=== PATIENT | female | born 1950 | race Caucasian/White ===

== ENCOUNTER → 2016-12-06 | Outpatient (CLI) | payer MEDICARE ==
--- NOTE | 2016-12-06 10:28 | MM ---
Reason for exam: clinical finding. History: Patient is postmenopausal. Physical Findings: Nurse Summary: 0.5cm nodule in the right breast and a 0.5cm nodule in the left breast (nurse kp). MG 3D Diag Mammo W/Cad SOBIA Bilateral CC and MLO view(s) were taken. No prior studies available for comparison. The breast tissue is heterogeneously dense. This may lower the sensitivity of mammography. No suspicious abnormality. These results were verbally communicated with the patient and result sheet given to the patient on 12/06/16. ASSESSMENT: Incomplete: need additional imaging evaluation, BI-RAD 0 RECOMMENDATION: Ultrasound of both breasts. (palpables posterior to nipple)
--- NOTE | 2016-12-06 10:30 | USB ---
Reason for exam: clinical finding. History: Patient is postmenopausal. US Breast Limited BILAT Left breast ultrasound demonstates a 0.2 x 0.3 x 0.2cm oval lesion too small to characterize at 6 o'clock. Right breast ultrasound demonstrates no cystic or solid lesion seen. These results were verbally communicated with the patient and result sheet given to the patient on 12/06/16. ASSESSMENT: Probably benign, BI-RAD 3 RECOMMENDATION: Ultrasound of the left breast in 6 months. Manage on a clinical basis with regard to inverted nipples.
--- NOTE | 2016-12-06 12:08 | XR ---
EXAMINATION TYPE: XR chest 2V DATE OF EXAM: 12/06/2016 COMPARISON: NONE HISTORY: Tobacco use, weight loss and nicotine dependence TECHNIQUE: Frontal and lateral views of the chest are obtained. FINDINGS: There is no focal air space opacity, pleural effusion, or pneumothorax seen. The cardiac silhouette size is within normal limits. There is some prominence of interstitium. Postop changes ar e noted to the left shoulder. Acromioclavicular joint arthropathy noted in the right shoulder. IMPRESSION: There may be some underlying interstitial lung disease.
== END | disposition home or self-care (01) ==
LOC: RADMAMWWP 08:28
PROVIDERS: ATTEND Family Medicine
DX: R92.8 Other abnormal and inconclusive findings on diagnostic imaging of breast (principal); N64.59 Other signs and symptoms in breast; R59.9 Enlarged lymph nodes, unspecified; R63.4 Abnormal weight loss; F17.200 Nicotine dependence, unspecified, uncomplicated
CPT/HCPCS: 71020; 76642; G0204; G0279

== ENCOUNTER 2017-12-27 00:29 | Emergency (ER) | payer MEDICARE ==
[2017-12-27 00:38] VITALS: RESP 20
[2017-12-27] MEDS ORDERED: HYDROcodone/APAP 5-325MG 1 EACH TAB PO STA (01:07)
--- NOTE | 2017-12-27 01:12 | ED ---
Fall HPI - General Chief Complaint: Fall Stated Complaint: FALL Time Seen by Provider: 12/27/17 00:44 Source: patient Mode of arrival: wheelchair - History of Present Illness Initial Comments: 67-year-old female patient presents to the emergency department today for complaints of left hip and low back pain after expressing a fall. Patient states approximately 2 hours ago she was using the restroom at a bar when she lost her balance fell backwards and struck her left low back on the toilet. Patient states that she was able to ambulate after the incident however was limping. States that she is also having pain to the left lateral hip. States that she does have bruising and swelling to the left low back. She denies any numbness or tingling to her lower extremities. Denies any loss of bowel or bladder control. Denies any saddle anesthesia. Denies taking any pain medication for her symptoms. She denies hitting her head or losing consciousness during the fall. She denies any other injuries. Patient denies any headache, neck pain, chest pain, shortness of breath, dizziness, weakness, abdominal pain, nausea, vomiting, or difficulties with bowel movements or urination. - Related Data Home Medications Medication Instructions Recorded Confirmed No Known Home Medications 12/27/17 12/27/17 Allergies Allergy/AdvReac Type Severity Reaction Status Date / Time No Known Allergies Allergy Verified 12/27/17 00:38 Review of Systems ROS Statement: Those systems with pertinent positive or pertinent negative responses have been documented in the HPI. ROS Other: All systems not noted in ROS Statement are negative. Past Medical History Past Medical History: No Reported History History of Any Multi-Drug Resistant Organisms: None Reported Past Surgical History: Orthopedic Surgery Additional Past Surgical History / Comment(s): shoulder, back sx Past Psychological History: No Psychological Hx Reported Smoking Status: Current every day smoker Past Alcohol Use History: Occasional Past Drug Use History: None Reported General Exam Limitations: no limitations General appearance: alert, in no apparent distress, other (This is a well- developed, well-nourished adult female patient in no acute distress. Vital signs upon presentation shows temperature 98.8F, pulse 87, respirations 20, blood pressure 173/76, pulse ox 96% on room air.) Eye exam: Present: normal appearance, PERRL, EOMI. Absent: scleral icterus, conjunctival injection, periorbital swelling ENT exam: Present: normal exam, normal oropharynx, mucous membranes moist Respiratory exam: Present: wheezes (Mild wheezing upper lobes). Absent: normal lung sounds bilaterally, respiratory distress, rales, rhonchi, stridor Cardiovascular Exam: Present: regular rate, normal rhythm, normal heart sounds. Absent: systolic murmur, diastolic murmur, rubs, gallop, clicks GI/Abdominal exam: Present: soft, normal bowel sounds. Absent: distended, tenderness, guarding, rebound, rigid Back exam: Present: vertebral tenderness (Lower lumbar tenderness. ), other ( Hematoma and ecchymosis to the left lower lateral back. Mild lower lumbar tenderness. ). Absent: normal inspection Neurological exam: Present: alert, oriented X3, CN II-XII intact Psychiatric exam: Present: normal affect, normal mood Skin exam: Present: warm, dry, intact, normal color. Absent: rash Course Vital Signs 12/27/17 00:32 Temperature 98.8 F Pulse Rate 87 Respiratory 20 Rate Blood Pressure 123/76 O2 Sat by Pulse 96 Oximetry Medical Decision Making - Medical Decision Making 67 year-old female patient presented to the emergency department today for evaluation of left hip and low back pain after expressing a fall this evening. Physical examination did reveal evidence of a large hematoma to the left low back with ecchymosis. Patient did have some mild lower lumbar tenderness. X- ray of the lumbosacral spine was obtained and showed no evidence of acute fracture. Left hip and pelvis x-rays were also negative for any acute osseous abnormalities. Did discuss findings and results with the patient. She is instructed to apply ice to the left low back 20 minutes at a time at least 4 times per day. She is instructed take Tylenol Motrin for pain control. She is instructed to follow-up with her primary care physician for recheck in 1-2 days. Return parameters discussed in detail. She verbalizes understanding and agrees with this plan. - Radiology Data Radiology results: report reviewed, image reviewed 5 view x-ray of the lumbosacral spine are obtained. The vertebra have fairly normal alignment. There is slight lumbar dextroscoliosis. Posterior elements are intact. Sacroiliac joints appear intact. There is narrowing of the L5-S1 disc space with vacuum disc. There is no compression fracture. Impression by Dr. Amaya shows mild spondylotic changes. No fracture seen. Single view of the pelvis and 2 views of the left hip are obtained. The pelvic ring is intact. The proximal left femur and hip joint appear intact. There is minor acetabular sprain. Hip joint spaces are fairly normal. Sacroiliac joints appear normal. Impression by Dr. Amaya shows negative pelvis and left hip exam. Disposition Clinical Impression: Traumatic hematoma of lower back, Hip strain Disposition: HOME SELF-CARE Condition: Good Instructions: Hip Pain (ED), Hematoma (ED) Additional Instructions: Apply ice to the low back 20 minutes at a time at least 4 times daily. Take ibuprofen and Tylenol for pain control. Follow-up with your primary care physician for recheck in 1-2 days. Return here immediately for any new, worsening, or concerning symptoms. Is patient prescribed a controlled substance at d/c from ED?: No Referrals: Gabriela Avendano MD [Primary Care Provider] - 1-2 days Time of Disposition: 02:00
--- NOTE | 2017-12-27 01:42 | XR ---
EXAMINATION TYPE: XR Hip LT and AP Pelvis DATE OF EXAM: 12/27/2017 COMPARISON: NONE HISTORY: Left hip pain TECHNIQUE: A single AP view of the pelvis is obtained. Two views of the left hip are obtained. FINDINGS: The pelvic ring is intact. The proximal left femur and hip joint appear intact. There is mi nor acetabular spurring. Hip joint spaces are fairly normal. Sacroiliac joints appear normal. IMPRESSION: Negative pelvis and left hip exam.
--- NOTE | 2017-12-27 01:45 | XR ---
EXAMINATION TYPE: XR lumbosacral spine min 4V DATE OF EXAM: 12/27/2017 COMPARISON: NONE HISTORY: Back pain TECHNIQUE: 5 views FINDINGS: The vertebra have fairly normal alignment. There is slight lumbar dextroscoliosis. Posterio r elements are intact. Sacroiliac joints appear intact. There is narrowing of L5-S1 disc space with v acuum disc. There is no compression fracture. IMPRESSION: Mild spondylotic changes. No fracture seen.
[2017-12-27 03:05] VITALS: BP 125/93; PULSE 100; TEMP 98.7
== END 2017-12-27 02:09 | disposition home or self-care (01) ==
LOC: EC 00:29
DX: S76.012A Strain of muscle, fascia and tendon of left hip, initial encounter (principal); S30.0XXA Contusion of lower back and pelvis, initial encounter; F17.200 Nicotine dependence, unspecified, uncomplicated; W18.09XA Striking against other object with subsequent fall, initial encounter; Y92.89 Other specified places as the place of occurrence of the external cause
CPT/HCPCS: 72110; 73502; 99283

== ENCOUNTER 2018-03-19 17:08 | Observation (INO) | payer MEDICARE ==
--- NOTE | 2018-03-19 19:03 | XR ---
EXAMINATION: XR chest 2V DATE AND TIME: 03/19/2018 6:36 PM CLINICAL INDICATION: PHH; Chest Pain TECHNIQUE: Departmental protocol COMPARISON: 12/06/2016 FINDINGS: The lungs again show a subtle interstitial pattern, suggesting chronic interstitial lung change. The lungs appear similar to the prior study and there is no definite acute radiographic pulmonary process . The pleural spaces are negative. The cardiac silhouette is not enlarged. The remainder of the mediastinal silhouette is unremarkable. The skeletal structures and soft tissues are negative for acute findings. IMPRESSION: NO ACUTE PROCESS.
[2018-03-19 19:14] LABS: Partial Thromboplastin Time 27.3 sec (22.0-30.0); Prothrombin Time 10.4 sec (9.0-12.0)
[2018-03-19 19:15] LABS: Basophils # (A) 0.1 k/uL (0-0.2); Basophils % (A) 1 %; Eosinophils # (A) 0.2 k/uL (0-0.7); Eosinophils % (A) 2 %; HCT 47.6 % (34.0-46.0); HGB 16.2 gm/dL (11.4-16.0); Lymphocytes # (A) 1.9 k/uL (1.0-4.8); Lymphocytes % (A) 24 %; MCH 31.7 pg (25.0-35.0); MCV 93.5 fL (80.0-100.0); Mean Platelet Volume 7.2; Monocytes # (A) 0.3 k/uL (0-1.0); Monocytes % (A) 4 %; Neutrophils # (A) 5.3 k/uL (1.3-7.7); Neutrophils % (A) 67 %; Platelet Count 281 k/uL (150-450); WBC 7.9 k/uL (3.8-10.6)
[2018-03-19 19:22] LABS: ALT 30 U/L (9-52); AST 23 U/L (14-36); Albumin 4.5 g/dL (3.5-5.0); Alkaline Phosphatase 103 U/L (38-126); Anion Gap 12 mmol/L; Blood Urea Nitrogen 12 mg/dL (7-17); Calcium 10.1 mg/dL (8.4-10.2); Carbon Dioxide 21 mmol/L (22-30); Chloride 106 mmol/L (98-107); Glucose 91 mg/dL (74-99); Lipase 1401 U/L (23-300); Magnesium 1.9 mg/dL (1.6-2.3); Potassium 3.8 mmol/L (3.5-5.1); Sodium 139 mmol/L (137-145); Total Bilirubin 0.4 mg/dL (0.2-1.3); Total Protein 7.7 g/dL (6.3-8.2)
[2018-03-19 19:24] LABS: Creatine Kinase 72 U/L (30-135)
[2018-03-19 19:37] LABS: Creatine Kinase MB 0.9 ng/mL (0.0-2.4); Troponin I <0.012 ng/mL (0.000-0.034)
[2018-03-19] MEDS ORDERED: ASPIRIN 325 MG TAB PO STA (21:01)
--- NOTE | 2018-03-19 21:04 | ED ---
General Adult HPI - General Chief complaint: Chest Pain Stated complaint: CHEST PAIN Time Seen by Provider: 03/19/18 17:57 Source: patient, RN notes reviewed, old records reviewed Mode of arrival: ambulatory Limitations: no limitations - History of Present Illness Initial comments: 67-year-old female presenting for evaluation of chest pain. Pain is substernal. Patient's symptoms resolved time my evaluation. She's had intermittent pain over the past several months, most recent episode was yesterday afternoon while the patient was at rest. This was nonradiating substernal chest pain which was dull in nature. No vomiting. No history of hypertension diabetes. Patient is a current smoker. She denies dyspnea. Denies abdominal pain. - Related Data Home Medications Medication Instructions Recorded Confirmed No Known Home Medications 12/27/17 03/19/18 Allergies Allergy/AdvReac Type Severity Reaction Status Date / Time No Known Allergies Allergy Verified 03/19/18 18:19 Review of Systems ROS Statement: Those systems with pertinent positive or pertinent negative responses have been documented in the HPI. ROS Other: All systems not noted in ROS Statement are negative. Past Medical History Past Medical History: No Reported History History of Any Multi-Drug Resistant Organisms: None Reported Past Surgical History: Orthopedic Surgery Additional Past Surgical History / Comment(s): shoulder, back sx Past Psychological History: No Psychological Hx Reported Smoking Status: Current every day smoker Past Alcohol Use History: Occasional Past Drug Use History: None Reported General Exam Limitations: no limitations General appearance: alert, in no apparent distress Head exam: Present: atraumatic Eye exam: Present: normal appearance, PERRL ENT exam: Present: normal exam Neck exam: Present: normal inspection. Absent: tenderness, meningismus Respiratory exam: Present: normal lung sounds bilaterally. Absent: respiratory distress, wheezes Cardiovascular Exam: Present: regular rate, normal rhythm GI/Abdominal exam: Present: soft. Absent: distended, tenderness, guarding, rebound Extremities exam: Present: normal inspection, full ROM, normal capillary refill. Absent: pedal edema Back exam: Present: normal inspection Neurological exam: Present: alert, oriented X3, CN II-XII intact. Absent: motor sensory deficit Psychiatric exam: Present: normal affect, normal mood Skin exam: Present: warm, dry, intact. Absent: cyanosis, diaphoretic Course Vital Signs 03/19/18 03/19/18 03/19/18 17:11 19:30 20:00 Temperature 97.5 F L Pulse Rate 92 68 83 Respiratory 22 18 20 Rate Blood Pressure 127/85 116/80 114/79 O2 Sat by Pulse 96 98 98 Oximetry 03/19/18 20:30 Temperature Pulse Rate 78 Respiratory 20 Rate Blood Pressure 115/100 O2 Sat by Pulse 98 Oximetry - Reevaluation(s) Reevaluation #1: 03/19/18 21:02 EKG: Normal sinus rhythm, artifact in aVL, and aVF, no ST segment elevation, incomplete right bundle branch block, rate of 89, MI interval 182, QRS duration 14, QTC 491 which is prolonged. Medical Decision Making - Medical Decision Making 67-year-old female presenting with intermittent substernal chest pain. Patient does have risk factors for CAD. Laboratory studies reveal normal white blood cell count, hemoglobin 16.2, CMP is normal, lipase elevated at 1400, patient has no abdominal pain, no tenderness. Ultrasound is obtained which is negative for any acute pathology. Initial troponin negative. Chest x-ray negative for acute cardiopulmonary disease. Patient given aspirin emergency prompt. She will be admitted for serial cardiac enzymes, telemetry, and cardiology consultation. Case discussed with the admitting physician will accept. - Lab Data Result diagrams: 03/19/18 18:32 03/19/18 18:32 Lab Results 03/19/18 03/19/18 03/19/18 Range/Units 18:32 18:32 18:32 WBC 7.9 (3.8-10.6) k/uL RBC 5.10 (3.80-5.40) m/uL Hgb 16.2 H (11.4-16.0) gm/dL Hct 47.6 H (34.0-46.0) % MCV 93.5 (80.0-100.0) fL MCH 31.7 (25.0-35.0) pg MCHC 34.0 (31.0-37.0) g/dL RDW 13.0 (11.5-15.5) % Plt Count 281 (150-450) k/uL Neutrophils % 67 % Lymphocytes % 24 % Monocytes % 4 % Eosinophils % 2 % Basophils % 1 % Neutrophils # 5.3 (1.3-7.7) k/uL Lymphocytes # 1.9 (1.0-4.8) k/uL Monocytes # 0.3 (0-1.0) k/uL Eosinophils # 0.2 (0-0.7) k/uL Basophils # 0.1 (0-0.2) k/uL PT (9.0-12.0) sec INR (<1.2) APTT (22.0-30.0) sec Sodium 139 (137-145) mmol/L Potassium 3.8 (3.5-5.1) mmol/L Chloride 106 (98-107) mmol/L Carbon Dioxide 21 L (22-30) mmol/L Anion Gap 12 mmol/L BUN 12 (7-17) mg/dL Creatinine 0.66 (0.52-1.04) mg/dL Est GFR (CKD-EPI)AfAm >90 (>60 ml/min/1.73 sqM) Est GFR (CKD-EPI)NonAf >90 (>60 ml/min/1.73 sqM) Glucose 91 (74-99) mg/dL Calcium 10.1 (8.4-10.2) mg/dL Magnesium 1.9 (1.6-2.3) mg/dL Total Bilirubin 0.4 (0.2-1.3) mg/dL AST 23 (14-36) U/L ALT 30 (9-52) U/L Alkaline Phosphatase 103 (38-126) U/L Total Creatine Kinase 72 (30-135) U/L CK-MB (CK-2) 0.9 (0.0-2.4) ng/mL CK-MB (CK-2) Rel Index 1.3 Troponin I <0.012 (0.000-0.034) ng/mL NT-Pro-B Natriuret Pep pg/mL Total Protein 7.7 (6.3-8.2) g/dL Albumin 4.5 (3.5-5.0) g/dL Lipase 1401 H (23-300) U/L 03/19/18 03/19/18 Range/Units 18:32 18:32 WBC (3.8-10.6) k/uL RBC (3.80-5.40) m/uL Hgb (11.4-16.0) gm/dL Hct (34.0-46.0) % MCV (80.0-100.0) fL MCH (25.0-35.0) pg MCHC (31.0-37.0) g/dL RDW (11.5-15.5) % Plt Count (150-450) k/uL Neutrophils % % Lymphocytes % % Monocytes % % Eosinophils % % Basophils % % Neutrophils # (1.3-7.7) k/uL Lymphocytes # (1.0-4.8) k/uL Monocytes # (0-1.0) k/uL Eosinophils # (0-0.7) k/uL Basophils # (0-0.2) k/uL PT 10.4 (9.0-12.0) sec INR 1.0 (<1.2) APTT 27.3 (22.0-30.0) sec Sodium (137-145) mmol/L Potassium (3.5-5.1) mmol/L Chloride (98-107) mmol/L Carbon Dioxide (22-30) mmol/L Anion Gap mmol/L BUN (7-17) mg/dL Creatinine (0.52-1.04) mg/dL Est GFR (CKD-EPI)AfAm (>60 ml/min/1.73 sqM) Est GFR (CKD-EPI)NonAf (>60 ml/min/1.73 sqM) Glucose (74-99) mg/dL Calcium (8.4-10.2) mg/dL Magnesium (1.6-2.3) mg/dL Total Bilirubin (0.2-1.3) mg/dL AST (14-36) U/L ALT (9-52) U/L Alkaline Phosphatase (38-126) U/L Total Creatine Kinase (30-135) U/L CK-MB (CK-2) (0.0-2.4) ng/mL CK-MB (CK-2) Rel Index Troponin I (0.000-0.034) ng/mL NT-Pro-B Natriuret Pep 31 pg/mL Total Protein (6.3-8.2) g/dL Albumin (3.5-5.0) g/dL Lipase (23-300) U/L Disposition Clinical Impression: Chest pain Disposition: ADMITTED IP TO THIS HOSP Is patient prescribed a controlled substance at d/c from ED?: No Referrals: Gabriela Avendano MD [Primary Care Provider] - 1-2 days Decision to Admit Reason: Admit from EC Decision Date: 03/19/18 Decision Time: 21:17
--- NOTE | 2018-03-19 21:07 | US ---
EXAMINATION TYPE: US gallbladder DATE OF EXAM: 03/19/2018 COMPARISON: NONE CLINICAL HISTORY: Pain. RUQ Pain. Limitations due to rib shadowing. EXAM MEASUREMENTS: Liver Length: 14.7 cm Gallbladder Wall: 0.2 cm CBD: 0.3 cm Right Kidney: 10.6 x 4.3 x 3.4 cm Pancreas: Obscured by bowel gas Liver: wnl Gallbladder: wnl Evidence for sonographic Valentine's sign: No CBD: wnl Right Kidney: wnl IMPRESSION: No acute process.
[2018-03-19] MEDS ORDERED: NALOXONE 0.4 MG/ML 1 ML VIAL IV PRN (21:10)
[2018-03-19] MEDS ORDERED: HYDROmorphone 0.5 MG/0.5 ML SYRINGE IVP PRN (21:10)
[2018-03-19] MEDS ORDERED: ACETAMINOPHEN TAB 325 MG TAB PO PRN (21:10)
[2018-03-19] MEDS ORDERED: ONDANSETRON 4 MG/2 ML VIAL IVP PRN (21:10)
[2018-03-19 22:11] VITALS: BMI 25.6
[2018-03-19] MEDS: SODIUM CHLORIDE 0.9% 1,000 ML IV SCH (22:21)
[2018-03-20 01:12] LABS: Creatine Kinase 59 U/L (30-135)
[2018-03-20 01:25] LABS: Creatine Kinase MB 0.9 ng/mL (0.0-2.4); Troponin I <0.012 ng/mL (0.000-0.034)
[2018-03-20 08:30] LABS: Basophils # (A) 0.1 k/uL (0-0.2); Basophils % (A) 1 %; Eosinophils # (A) 0.2 k/uL (0-0.7); Eosinophils % (A) 4 %; HCT 48.3 % (34.0-46.0); HGB 15.3 gm/dL (11.4-16.0); Lymphocytes # (A) 1.5 k/uL (1.0-4.8); Lymphocytes % (A) 34 %; MCH 30.1 pg (25.0-35.0); MCHC 31.8 g/dL (31.0-37.0); MCV 94.7 fL (80.0-100.0); Mean Platelet Volume 6.5; Monocytes # (A) 0.3 k/uL (0-1.0); Monocytes % (A) 7 %; Neutrophils # (A) 2.3 k/uL (1.3-7.7); Neutrophils % (A) 51 %; Platelet Count 279 k/uL (150-450); RDW 12.8 % (11.5-15.5); WBC 4.4 k/uL (3.8-10.6)
[2018-03-20 08:36] LABS: ALT 26 U/L (9-52); AST 23 U/L (14-36); Albumin 3.9 g/dL (3.5-5.0); Alkaline Phosphatase 100 U/L (38-126); Amylase 93 U/L (30-110); Anion Gap 6 mmol/L; Blood Urea Nitrogen 10 mg/dL (7-17); Calcium 9.6 mg/dL (8.4-10.2); Carbon Dioxide 23 mmol/L (22-30); Chloride 113 mmol/L (98-107); Glucose 102 mg/dL (74-99); Lipase 152 U/L (23-300); Potassium 4.3 mmol/L (3.5-5.1); Sodium 142 mmol/L (137-145); Total Bilirubin 0.6 mg/dL (0.2-1.3)
[2018-03-20 08:37] LABS: Creatine Kinase 54 U/L (30-135)
[2018-03-20 08:48] LABS: Creatine Kinase MB 0.7 ng/mL (0.0-2.4); Troponin I <0.012 ng/mL (0.000-0.034)
[2018-03-20] MEDS: PANTOPRAZOLE 40 MG/10 ML VIAL IVP SCH (09:14)
[2018-03-20] MEDS: SODIUM CHLORIDE 0.9% 1,000 ML IV SCH ×3 (09:14→14:50)
[2018-03-20 09:26] LABS: Cholesterol 280 mg/dL (<200); HDL Cholesterol 51 mg/dL (40-60); LDL Cholesterol,Calculated 197 mg/dL (0-99); Triglycerides 159 mg/dL (<150)
--- NOTE | 2018-03-20 10:27 | ECHOF ---
Referral Reason:cp MEASUREMENTS -------- HEIGHT: 157.5 cm WEIGHT: 59.0 kg BP: 144/89 RVIDd: 2.8 cm (< 3.3) IVSd: 1.1 cm (0.6 - 1.1) LVIDd: 3.5 cm (3.9 - 5.3) LVPWd: 1.2 cm (0.6 - 1.1) IVSs: 1.7 cm LVIDs: 2.5 cm LVPWs: 1.3 cm LA Diam: 2.7 cm (2.7 - 3.8) LAESV Index (A-L): 18.59 ml/m Ao Diam: 3.2 cm (2.0 - 3.7) AV Cusp: 2.1 cm (1.5 - 2.6) MV EXCURSION: 13.254 mm (> 18.000) MV EF SLOPE: 56 mm/s (70 - 150) EPSS: 0.3 cm MV E Maximiliano: 0.87 m/s MV DecT: 256 ms MV A Maximiliano: 0.82 m/s MV E/A Ratio: 1.07 RAP: 5.00 mmHg RVSP: 24.79 mmHg FINDINGS -------- Sinus rhythm. This was a technically adequate study. The left ventricular size is normal. There is borderline concentric left ventricular hypertrophy. Overall left ventricular systolic function is normal with, an EF between 60 - 65 %. The right ventricle is normal in size. Normal LA size by volume 22+/-6 ml/m2. The right atrium is normal in size. The aortic valve is trileaflet and appears structurally normal. Mild mitral regurgitation is present. Mild tricuspid regurgitation present. Right ventricular systolic pressure is normal at < 35 mmHg. The pulmonic valve was not well visualized. The aortic root size is normal. Normal inferior vena cava with normal inspiratory collapse consistent with estimated right atrial pre ssure of 5 mmHg. There is no pericardial effusion. CONCLUSIONS -------- 1. Sinus rhythm. 2. This was a technically adequate study. 3. The left ventricular size is normal. 4. There is borderline concentric left ventricular hypertrophy. 5. Overall left ventricular systolic function is normal with, an EF between 60 - 65 %. 6. The right ventricle is normal in size. 7. Normal LA size by volume 22+/-6 ml/m2. 8. The right atrium is normal in size. 9. The aortic valve is trileaflet and appears structurally normal. 10. Mild mitral regurgitation is present. 11. Mild tricuspid regurgitation present. 12. Right ventricular systolic pressure is normal at < 35 mmHg. 13. The pulmonic valve was not well visualized. 14. The aortic root size is normal. 15. Normal inferior vena cava with normal inspiratory collapse consistent with estimated right atrial pressure of 5 mmHg. 16. There is no pericardial effusion. [employer] ENGINEERING TEACHER: Sherly Toledo RDCS
--- NOTE | 2018-03-20 12:03 | P.CRDCN ---
History of Present Illness History of present illness: This is a pleasant 67-year-old female past medical history significant for chronic nicotine dependence. She denies history of hypertension , dyslipidemia, coronary artery disease or diabetes mellitus. She has never followed with a business writer for any reason. We have been asked to see her in consultation for chest pain. She states over the previous year she has intermittent episodes of midsternal epigastric pain heaviness. Yesterday evening while she was laying down she had another episode where she felt an intense heavy burning pain in the mid epigastric region with radiation to the right upper quadrant. She feels extremely nauseated and diaphoretic when these pains come. No specific aggravating or alleviating factor. She denies any actual precordial chest discomfort, no radiation to the arm, back, neck or jaw. She denies associated shortness of breath, palpitations, dizziness or vomiting. EKG reveals sinus mechanism with incomplete bundle-branch block. No acute ST-T wave abnormalities noted. Chest x-ray is negative for an acute cardiopulmonary process. Gallbladder ultrasound negative. Laboratory data reviewed, WBC 4.4, hemoglobin 15.3, platelets 279, sodium 142, potassium 4.3, being exam 1.9, creatinine 0.69, cardiac enzymes negative 3, NT proBNP 31, lipase on admission 1401-252 today, triglycerides 159, LDL 197 and HDL 51. She takes no daily cardiac medications. At the time of my exam: CONSTITUTIONAL: Denies fever. Denies chills. EYES: Denies blurred vision. Denies vision changes. Denies eye pain. EARS, NOSE, MOUTH & THROAT: Denies headache. Denies sore throat. Denies ear pain. CARDIOVASCULAR: Denies chest pain. Denies shortness of breath. Denies orthopnea. Denies PND. Denies palpitations. RESPIRATORY: Denies cough. GASTROINTESTINAL: Denies abdominal pain. Denies diarrhea. Denies constipation. Denies nausea. Denies vomiting. MUSCULOSKELETAL: Denies myalgias. INTEGUMENTARY: Denies pruitis. Denies rash. NEUROLOGIC: Denies numbness. Denies tingling. Denies weakness. PSYCHIATRIC: Denies anxiety. Denies depression. ENDOCRINE: Denies fatigue. Denies weight change. Denies polydipsia. Denies polyurina. GENITOURINARY: Denies burning, hematuria or urgency with micturation. HEMATOLOGIC: Denies history of anemia. Denies bleeding. Blood pressure 144/86 heart rate 61 afebrile maintaining oxygen saturation on room air GENERAL: This is a 67-year-old female in no apparent distress at the time of my examination. Appears older than stated age. HEENT: Head is atraumatic, normocephalic. Pupils are equal, round. Sclerae anicteric. Conjunctivae are clear. Mucous membranes of the mouth are moist. Neck is supple. There is no jugular venous distention. No carotid bruit is heard. LUNGS: Coarse throughout. No wheezes or rales. No chest wall tenderness is noted on palpation or with deep breathing. HEART: Regular rate and rhythm without murmurs, rubs or gallops. S1 and S2 heard. ABDOMEN: Soft, nontender. Bowel sounds are heard. No organomegaly noted. EXTREMITIES: No evidence of peripheral edema and no calf tenderness noted. VASCULAR: Radial and dorsalis pedis pulses palpated, no evidence of clubbing. NEUROLOGIC: Patient is awake, alert and oriented x3. ASSESSMENT Epigastric discomfort Chronic nicotine dependence Acute pancreatitis PLAN Echocardiogram as been obtained and reviewed. An acute coronary event has been ruled out. Symptoms not suggestive of angina or cardiac etiology. Smoking cessation highly recommended. Ongoing medical management per primary care team. Consider imaging of her abdomen and GI evaluation. Thank you kindly for this consultation. Nurse Practitioner note has been reviewed, I agree with a documented findings and plan of care. Patient was seen and examined. Past Medical History Past Medical History: No Reported History History of Any Multi-Drug Resistant Organisms: None Reported Past Surgical History: Section, Orthopedic Surgery Additional Past Surgical History / Comment(s): shoulder, back sx Past Anesthesia/Blood Transfusion Reactions: No Reported Reaction Past Psychological History: No Psychological Hx Reported Smoking Status: Current every day smoker Past Alcohol Use History: Occasional Past Drug Use History: None Reported Medications and Allergies Home Medications Medication Instructions Recorded Confirmed Type traMADol HCl [Ultram] PO TID PRN 03/19/18 History Allergies Allergy/AdvReac Type Severity Reaction Status Date / Time No Known Allergies Allergy Verified 03/19/18 18:19 Physical Exam Vitals: Vital Signs Temp Pulse Pulse Resp BP BP Pulse Ox 03/20/18 07:46 77 16 03/20/18 04:00 77 18 03/20/18 03:47 97.6 F 77 18 144/89 96 03/20/18 00:00 98.0 F 84 16 146/83 95 03/19/18 21:51 98.1 F 69 16 143/88 98 03/19/18 21:49 98 03/19/18 21:00 87 12 111/85 98 03/19/18 20:30 78 20 115/100 98 03/19/18 20:00 83 20 114/79 98 03/19/18 19:30 68 18 116/80 98 03/19/18 17:11 97.5 F L 92 22 127/85 96 Intake and Output 03/19/18 03/20/18 03/20/18 22:59 06:59 14:59 Other: Voiding Method Toilet # Voids 1 Weight 58.967 kg Results 03/20/18 07:12 03/20/18 07:12 Cardiac Enzymes 03/19/18 03/19/18 03/20/18 Range/Units 18:32 18:32 00:25 AST 23 (14-36) U/L CK-MB (CK-2) 0.9 0.9 (0.0-2.4) ng/mL Troponin I <0.012 <0.012 (0.000-0.034) ng/mL 03/20/18 Range/Units 07:12 AST 23 (14-36) U/L CK-MB (CK-2) (0.0-2.4) ng/mL Troponin I (0.000-0.034) ng/mL Coagulation 03/19/18 Range/Units 18:32 PT 10.4 (9.0-12.0) sec APTT 27.3 (22.0-30.0) sec CBC 03/19/18 03/20/18 Range/Units 18:32 07:12 WBC 7.9 4.4 (3.8-10.6) k/uL RBC 5.10 5.10 (3.80-5.40) m/uL Hgb 16.2 H 15.3 (11.4-16.0) gm/dL Hct 47.6 H 48.3 H (34.0-46.0) % Plt Count 281 279 (150-450) k/uL Comprehensive Metabolic Panel 03/19/18 03/20/18 Range/Units 18:32 07:12 Sodium 139 142 (137-145) mmol/L Potassium 3.8 4.3 (3.5-5.1) mmol/L Chloride 106 113 H (98-107) mmol/L Carbon Dioxide 21 L 23 (22-30) mmol/L BUN 12 10 (7-17) mg/dL Creatinine 0.66 0.69 (0.52-1.04) mg/dL Glucose 91 102 H (74-99) mg/dL Calcium 10.1 9.6 (8.4-10.2) mg/dL AST 23 23 (14-36) U/L ALT 30 26 (9-52) U/L Alkaline Phosphatase 103 100 (38-126) U/L Total Protein 7.7 7.0 (6.3-8.2) g/dL Albumin 4.5 3.9 (3.5-5.0) g/dL Current Medications Generic Name Dose Route Start Last Admin Trade Name Freq PRN Reason Stop Dose Admin Acetaminophen 650 mg 03/19/18 21:10 Tylenol Tab PO Q6HR PRN Mild Pain or Fever > 100.5 Hydromorphone HCl 0.5 mg 03/19/18 21:10 Dilaudid IVP Q3HR PRN Moderate Pain Sodium Chloride 1,000 mls @ 20 mls/hr 03/19/18 21:15 03/19/18 22:21 Saline 0.9% IV 20 mls/hr .Q24H DEBBIE Administration Sodium Chloride 1,000 mls @ 100 mls/hr 03/20/18 08:45 Saline 0.9% IV .Q10H DEBBIE Naloxone HCl 0.2 mg 03/19/18 21:10 Narcan IV Q2M PRN Opioid Reversal Ondansetron HCl 4 mg 03/19/18 21:10 Zofran IVP Q8HR PRN Nausea And Vomiting Pantoprazole Sodium 40 mg 03/20/18 09:00 Protonix IVP DAILY DEBBIE Intake and Output 03/19/18 03/20/18 03/20/18 22:59 06:59 14:59 Other: Voiding Method Toilet # Voids 1 Weight 58.967 kg 03/20/18 07:12 03/20/18 07:12
[2018-03-21] MEDS: HYDROmorphone 2 MG TAB PO PRN ×2 (01:45→06:09)
[2018-03-21] MEDS: SODIUM CHLORIDE 0.9% 1,000 ML IV SCH ×3 (06:00→10:49)
[2018-03-21 06:29] LABS: Basophils # (A) 0.1 k/uL (0-0.2); Basophils % (A) 1 %; Eosinophils # (A) 0.1 k/uL (0-0.7); Eosinophils % (A) 3 %; HGB 16.8 gm/dL (11.4-16.0); Lymphocytes # (A) 1.8 k/uL (1.0-4.8); Lymphocytes % (A) 34 %; MCH 31.3 pg (25.0-35.0); MCHC 32.3 g/dL (31.0-37.0); MCV 97.1 fL (80.0-100.0); Mean Platelet Volume 6.7; Monocytes # (A) 0.3 k/uL (0-1.0); Monocytes % (A) 5 %; Neutrophils # (A) 2.8 k/uL (1.3-7.7); Neutrophils % (A) 55 %; Platelet Count 281 k/uL (150-450); RBC 5.35 m/uL (3.80-5.40); RDW 12.9 % (11.5-15.5); WBC 5.2 k/uL (3.8-10.6)
[2018-03-21] MEDS: PANTOPRAZOLE 40 MG/10 ML VIAL IVP SCH (07:34)
[2018-03-21 07:54] LABS: ALT 26 U/L (9-52); AST 23 U/L (14-36); Albumin 4.4 g/dL (3.5-5.0); Alkaline Phosphatase 101 U/L (38-126); Amylase 104 U/L (30-110); Anion Gap 4 mmol/L; Blood Urea Nitrogen 12 mg/dL (7-17); Calcium 9.5 mg/dL (8.4-10.2); Carbon Dioxide 26 mmol/L (22-30); Chloride 112 mmol/L (98-107); Glucose 113 mg/dL (74-99); Lipase 542 U/L (23-300); Potassium 3.9 mmol/L (3.5-5.1); Sodium 142 mmol/L (137-145); Total Bilirubin 0.7 mg/dL (0.2-1.3); Total Protein 7.6 g/dL (6.3-8.2)
[2018-03-21 12:07] VITALS: BP 160/92; PULSE 56; RESP 18; TEMP 97.8
[2018-03-21] MEDS ORDERED: HYDROmorphone 0.5 MG/0.5 ML SYRINGE ONE (13:35)
--- NOTE | 2018-03-24 15:08 | P.HPIM ---
History of Present Illness H&P Date: 03/20/18 Chief Complaint: Chest pain This is a 67-year-old female, patient of Dr. Avendano. She has a known past medical history of nicotine dependence, occasional alcohol use, chronic back pain with previous back surgeries. She also has a history of a left hip and lower back hematoma. Patient reports that she has been having right sided rib cage pain. She was concerned that she may be having heart attack. Also is having nausea and some vomiting for the past 2 days. She also reports over the past year her stomach in the epigastric area has had episodes of pain. She came into the emergency room for further evaluation. She reports that she also would sweat profusely with the pain. Patient came into the ER for further evaluation and treatment. She was unable lipase of 1401. LFTs are normal troponins are negative 2. Gallbladder ultrasound is negative chest x-ray negative EKG showing a normal sinus rhythm and incomplete right bundle branch block. She is adopted she does not know her family history. Denies any previous heart attack, diabetes, hypertension or hyperlipidemia. but she is still an active smoker. Cardiology has been placed on consult. Denies any daily alcohol use. When she does drink she reports she'll have maybe up to 5 beers and that would likely be on a Friday. But it is not every Friday. She does report drinking 2 beers yesterday. Review of Systems Please refer to HPI otherwise unremarkable Past Medical History Past Medical History: No Reported History History of Any Multi-Drug Resistant Organisms: None Reported Past Surgical History: Section, Orthopedic Surgery Additional Past Surgical History / Comment(s): shoulder, back sx Past Anesthesia/Blood Transfusion Reactions: No Reported Reaction Past Psychological History: No Psychological Hx Reported Smoking Status: Current every day smoker Past Alcohol Use History: Occasional Past Drug Use History: None Reported Medications and Allergies Home Medications Medication Instructions Recorded Confirmed Type traMADol HCl [Ultram] PO TID PRN 03/19/18 History Allergies Allergy/AdvReac Type Severity Reaction Status Date / Time No Known Allergies Allergy Verified 03/19/18 18:19 Physical Exam Vitals: Vital Signs Temp Pulse Pulse Resp BP BP Pulse Ox 03/20/18 07:46 77 16 03/20/18 04:00 77 18 03/20/18 03:47 97.6 F 77 18 144/89 96 03/20/18 00:00 98.0 F 84 16 146/83 95 03/19/18 21:51 98.1 F 69 16 143/88 98 03/19/18 21:49 98 03/19/18 21:00 87 12 111/85 98 03/19/18 20:30 78 20 115/100 98 03/19/18 20:00 83 20 114/79 98 03/19/18 19:30 68 18 116/80 98 03/19/18 17:11 97.5 F L 92 22 127/85 96 Intake and Output 03/19/18 03/20/18 03/20/18 22:59 06:59 14:59 Other: Voiding Method Toilet # Voids 1 Weight 58.967 kg Head normocephalic Neck supple Lungs clear to auscultation bilaterally no wheezing or crackles Heart regular rate and rhythm S1-S2, no rub or gallop Abdomen is soft nontender nondistended positive bowel sounds no hepatosplenomegaly. Tender with palpation of the lower right rib cage Extremities no edema Neuro alert and orientated to 3 Results CBC & Chem 7: 03/21/18 06:13 03/21/18 06:13 Labs: Abnormal Lab Results - Last 24 Hours (Table) 03/19/18 03/19/18 03/20/18 Range/Units 18:32 18:32 07:12 Hgb 16.2 H (11.4-16.0) gm/dL Hct 47.6 H 48.3 H (34.0-46.0) % Chloride (98-107) mmol/L Carbon Dioxide 21 L (22-30) mmol/L Glucose (74-99) mg/dL Lipase 1401 H (23-300) U/L 03/20/18 Range/Units 07:12 Hgb (11.4-16.0) gm/dL Hct (34.0-46.0) % Chloride 113 H (98-107) mmol/L Carbon Dioxide (22-30) mmol/L Glucose 102 H (74-99) mg/dL Lipase (23-300) U/L Thrombosis Risk Factor Assmnt - Choose All That Apply Any of the Below Risk Factors Present?: No Other Risk Factors: Yes Each Risk Factor Represents 2 Points: Age 61-74 years Other congenital or acquired thrombophilia - If yes, enter type in comment: No Thrombosis Risk Factor Assessment Total Risk Factor Score: 2 Thrombosis Risk Factor Assessment Level: Low Risk Assessment and Plan Assessment: 1. Acute pancreatitis: Lipase elevated at 1401. Has normalized at 152. Continue with IV fluids. Check triglyceride level. Gallbladder ultrasound negative. 2. Chest pain: Cardiology has been placed on consult. First 2 troponins are negative. EKG showing a normal sinus rhythm and incomplete right bundle-branch block. Chest x-rays negative 3. Nicotine dependence discussed smoking cessation for greater than 3 minutes GI prophylaxis Protonix and DVT prophylaxis subcu heparin Time with Patient: Greater than 30 (Greater than 50% of the total time spent in counseling and coordination of care.I performed an examination of the patient and discussed their management with the physician Box Toe Cementer. I have reviewed the Physician Box Toe Cementer's notes and agree with the documented findings and plan of care)
--- NOTE | 2018-03-24 15:18 | P.DS ---
Providers Date of admission: 03/19/18 21:17 Expected date of discharge: 03/21/18 Attending physician: Abran Collins Consults: 03/19/18 21:11 Consult Physician Routine Consulting Provider: Guicho Mathur Consult Reason/Comments: CP Do you want consulting provider notified?: Yes 03/20/18 09:05 Consult Physician Routine Consulting Provider: Rico Hubbard Consult Reason/Comments: acute pancreatitis Do you want consulting provider notified?: Yes Primary care physician: Gabriela Avendano Hospital Course: Discharge Diagnosis 1. Acute pancreatitis: Possible ETOH pancreatitis. Lipase elevated at 1401. Has normalized at 152. Continue with IV fluids. triglyceride level 159. Gallbladder ultrasound negative. GI consulted 2. Chest pain: WI ruled out. EKG showing a normal sinus rhythm and incomplete right bundle-branch block. Chest x-rays negative. Seen and cleared by cardiology for discharge. 3. Nicotine dependence discussed smoking cessation for greater than 3 minutes Hospital course This is a 67-year-old female, patient of Dr. Avendano. She has a known past medical history of nicotine dependence, occasional alcohol use, chronic back pain with previous back surgeries. She also has a history of a left hip and lower back hematoma. Patient reports that she has been having right sided rib cage pain. She was concerned that she may be having heart attack. Also is having nausea and some vomiting for the past 2 days. She also reports over the past year her stomach in the epigastric area has had episodes of pain. She came into the emergency room for further evaluation. She reports that she also would sweat profusely with the pain. Patient came into the ER for further evaluation and treatment. She was unable lipase of 1401. LFTs are normal troponins are negative 2. Gallbladder ultrasound is negative chest x-ray negative EKG showing a normal sinus rhythm and incomplete right bundle branch block. She is adopted she does not know her family history. Denies any previous heart attack, diabetes, hypertension or hyperlipidemia. but she is still an active smoker. Cardiology has been placed on consult. Denies any daily alcohol use. When she does drink she reports she'll have maybe up to 5 beers and that would likely be on a Friday. But it is not every Friday. She does report drinking 2 beers yesterday. Patient's symptoms improved and she is able to be discharged home. Patient has been educated to refrain from drinking alcohol. She is medically stable for discharge. Patient Condition at Discharge: Stable Plan - Discharge Summary Discharge Rx Participant: Yes New Discharge Prescriptions: No Action traMADol HCl [Ultram] PO TID PRN PRN Reason: Back Pain Discharge Medication List traMADol HCl [Ultram] PO TID PRN 03/19/18 [History] Follow up Appointment(s)/Referral(s): Gabriela Avendano MD [Primary Care Provider] - 1-2 days Discharge Disposition: HOME SELF-CARE
== END 2018-03-21 15:18 | disposition home or self-care (01) ==
LOC: EC 17:08 → 1SOBS 21:17
PROVIDERS: ADMIT Internal Medicine; ATTEND Internal Medicine
DX: K85.90 Acute pancreatitis without necrosis or infection, unspecified (principal); R07.9 Chest pain, unspecified; I45.10 Unspecified right bundle-branch block; G89.29 Other chronic pain; M54.9 Dorsalgia, unspecified; F17.200 Nicotine dependence, unspecified, uncomplicated; Z79.891 Long term (current) use of opiate analgesic; Z72.89 Other problems related to lifestyle; Z87.828 Personal history of other (healed) physical injury and trauma
CPT/HCPCS: 96361 ×2; 96374; 96376; 99285; 36415; 93005; 93306; 83880; 80061; 80053 ×3; 82150 ×2; 82550 ×2; 82553 ×2; 83690 ×3; 83735; 84484 ×2; 85025 ×3; 85610; 85730; 71046; 76705; G0378 ×3; C9113 ×2

== ENCOUNTER → 2018-09-23 | Outpatient (CLI) | payer MEDICARE ==
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
== END | disposition home or self-care (01) ==
LOC: RADUSWWP 15:41
PROVIDERS: ATTEND Family Medicine
DX: M79.605 Pain in left leg (principal)

== ENCOUNTER 2019-01-30 12:13 | Emergency (ER) | payer MEDICARE ==
[2019-01-30 12:21] VITALS: TEMP 98.2
[2019-01-30] MEDS ORDERED: SODIUM CHLORIDE 0.9% 500 ML 500 ML IV STA (12:46)
[2019-01-30] MEDS ORDERED: SODIUM CHLORIDE 0.9% 1,000 ML IV STA (12:46)
--- NOTE | 2019-01-30 12:48 | ED ---
Altered Mental Status HPI - General Chief Complaint: Fall Stated Complaint: Back pain Time Seen by Provider: 01/30/19 12:28 Source: patient, RN notes reviewed, old records reviewed Mode of arrival: ambulatory Limitations: no limitations - History of Present Illness Initial Comments: This is a 68-year-old female status post fall fall 3 days ago off a stepstool back no head injury. Patient complaining of back. Took a significant amount baclofen for the last 2 days states patient was severely altered today nausea vomiting and not acting appropriately. Patient denying a headache no fevers. No significant injury from trauma. Patient does admit to back pain no abdominal pain. MD Complaint: altered mental status, confusion, decreased responsiveness -: days(s) Severity: moderate Consistency of Symptoms: waxing and waning, getting worse Context: drug abuse (Baclofen prescribed for back pain) Associated Symptoms: chest pain - Related Data Home Medications Medication Instructions Recorded Confirmed traMADol HCl [Ultram] PO TID PRN 03/19/18 Allergies Allergy/AdvReac Type Severity Reaction Status Date / Time No Known Allergies Allergy Verified 01/30/19 12:21 Review of Systems ROS Statement: Those systems with pertinent positive or pertinent negative responses have been documented in the HPI. ROS Other: All systems not noted in ROS Statement are negative. Past Medical History Past Medical History: No Reported History History of Any Multi-Drug Resistant Organisms: None Reported Past Surgical History: Section, Orthopedic Surgery Additional Past Surgical History / Comment(s): shoulder, back sx Past Anesthesia/Blood Transfusion Reactions: No Reported Reaction Past Psychological History: No Psychological Hx Reported Smoking Status: Current every day smoker Past Alcohol Use History: Occasional Past Drug Use History: None Reported General Exam Limitations: no limitations General appearance: alert, in no apparent distress Head exam: Present: atraumatic, normocephalic, normal inspection Eye exam: Present: normal appearance, PERRL, EOMI. Absent: scleral icterus, conjunctival injection, periorbital swelling ENT exam: Present: normal exam, mucous membranes moist Neck exam: Present: normal inspection. Absent: tenderness, meningismus, lymphadenopathy Respiratory exam: Present: normal lung sounds bilaterally. Absent: respiratory distress, wheezes, rales, rhonchi, stridor Cardiovascular Exam: Present: regular rate, normal rhythm, normal heart sounds. Absent: systolic murmur, diastolic murmur, rubs, gallop, clicks GI/Abdominal exam: Present: soft, normal bowel sounds. Absent: distended, tenderness, guarding, rebound, rigid Extremities exam: Present: normal inspection, full ROM, normal capillary refill. Absent: tenderness, pedal edema, joint swelling, calf tenderness Back exam: Present: normal inspection Neurological exam: Present: alert, oriented X3, CN II-XII intact Psychiatric exam: Present: normal affect, normal mood Skin exam: Present: warm, dry, intact, normal color. Absent: rash Course Vital Signs 01/30/19 01/30/19 01/30/19 12:16 13:13 14:37 Temperature 98.2 F Pulse Rate 82 80 77 Respiratory 18 20 16 Rate Blood Pressure 164/106 159/92 159/92 O2 Sat by Pulse 97 97 99 Oximetry - Reevaluation(s) Reevaluation #1: 01/30/19 15:42 Patient acting appropriately able anyway to her from the bathroom without assistance Medical Decision Making - Medical Decision Making 68-year-old ER for evaluation presented for evaluation regards to altered mental status, likely increased medication use, baclofen. Otherwise patient has no other injury noted no significant intoxication noted symptoms are improved currently and patient can be discharged home - Lab Data Result diagrams: 01/30/19 13:05 01/30/19 13:05 Lab Results 01/30/19 01/30/19 01/30/19 Range/Units 13:05 13:05 13:05 WBC 9.2 (3.8-10.6) k/uL RBC 4.57 (3.80-5.40) m/uL Hgb 14.4 (11.4-16.0) gm/dL Hct 43.1 (34.0-46.0) % MCV 94.2 (80.0-100.0) fL MCH 31.5 (25.0-35.0) pg MCHC 33.4 (31.0-37.0) g/dL RDW 12.3 (11.5-15.5) % Plt Count 302 (150-450) k/uL Neutrophils % 84 % Lymphocytes % 11 % Monocytes % 3 % Eosinophils % 1 % Basophils % 1 % Neutrophils # 7.7 (1.3-7.7) k/uL Lymphocytes # 1.0 (1.0-4.8) k/uL Monocytes # 0.3 (0-1.0) k/uL Eosinophils # 0.1 (0-0.7) k/uL Basophils # 0.1 (0-0.2) k/uL PT (9.0-12.0) sec INR (<1.2) APTT (22.0-30.0) sec Sodium 142 (137-145) mmol/L Potassium 3.8 (3.5-5.1) mmol/L Chloride 111 H (98-107) mmol/L Carbon Dioxide 26 (22-30) mmol/L Anion Gap 5 mmol/L BUN 13 (7-17) mg/dL Creatinine 0.65 (0.52-1.04) mg/dL Est GFR (CKD-EPI)AfAm >90 (>60 ml/min/1.73 sqM) Est GFR (CKD-EPI)NonAf >90 (>60 ml/min/1.73 sqM) Glucose 110 H (74-99) mg/dL Calcium 9.3 (8.4-10.2) mg/dL Phosphorus 3.0 (2.5-4.5) mg/dL Magnesium 1.9 (1.6-2.3) mg/dL Total Bilirubin 0.4 (0.2-1.3) mg/dL AST 27 (14-36) U/L ALT 34 (9-52) U/L Alkaline Phosphatase 119 (38-126) U/L Ammonia <9 (<30) umol/L Creatine Kinase 50 (30-135) U/L Troponin I (0.000-0.034) ng/mL Total Protein 6.9 (6.3-8.2) g/dL Albumin 3.9 (3.5-5.0) g/dL Lipase 120 (23-300) U/L Salicylates <1.0 mg/dL Acetaminophen <10.0 ug/mL Serum Alcohol <10 mg/dL 01/30/19 01/30/19 Range/Units 13:05 13:05 WBC (3.8-10.6) k/uL RBC (3.80-5.40) m/uL Hgb (11.4-16.0) gm/dL Hct (34.0-46.0) % MCV (80.0-100.0) fL MCH (25.0-35.0) pg MCHC (31.0-37.0) g/dL RDW (11.5-15.5) % Plt Count (150-450) k/uL Neutrophils % % Lymphocytes % % Monocytes % % Eosinophils % % Basophils % % Neutrophils # (1.3-7.7) k/uL Lymphocytes # (1.0-4.8) k/uL Monocytes # (0-1.0) k/uL Eosinophils # (0-0.7) k/uL Basophils # (0-0.2) k/uL PT 10.0 (9.0-12.0) sec INR 0.9 (<1.2) APTT 26.3 (22.0-30.0) sec Sodium (137-145) mmol/L Potassium (3.5-5.1) mmol/L Chloride (98-107) mmol/L Carbon Dioxide (22-30) mmol/L Anion Gap mmol/L BUN (7-17) mg/dL Creatinine (0.52-1.04) mg/dL Est GFR (CKD-EPI)AfAm (>60 ml/min/1.73 sqM) Est GFR (CKD-EPI)NonAf (>60 ml/min/1.73 sqM) Glucose (74-99) mg/dL Calcium (8.4-10.2) mg/dL Phosphorus (2.5-4.5) mg/dL Magnesium (1.6-2.3) mg/dL Total Bilirubin (0.2-1.3) mg/dL AST (14-36) U/L ALT (9-52) U/L Alkaline Phosphatase (38-126) U/L Ammonia (<30) umol/L Creatine Kinase (30-135) U/L Troponin I <0.012 (0.000-0.034) ng/mL Total Protein (6.3-8.2) g/dL Albumin (3.5-5.0) g/dL Lipase (23-300) U/L Salicylates mg/dL Acetaminophen ug/mL Serum Alcohol mg/dL - EKG Data -: EKG Interpreted by Me (EKG shows sinus bradycardia with a rate of 59 NM 214 QRS 182, QTC 4:39) - Radiology Data Radiology results: report reviewed (CT brain chest x-ray and pelvis x-rays negative for traumatic injury), image reviewed Disposition Clinical Impression: Altered mental status Disposition: HOME SELF-CARE Condition: Good Instructions (If sedation given, give patient instructions): Altered Mental Status (ED) Is patient prescribed a controlled substance at d/c from ED?: No Referrals: None,Stated [Primary Care Provider] - 1-2 days
[2019-01-30] MEDS ORDERED: ONDANSETRON 4 MG/2 ML VIAL IVP STA (13:49)
--- NOTE | 2019-01-30 13:51 | CT ---
EXAMINATION TYPE: CT brain opal landrum DATE OF EXAM: 01/30/2019 COMPARISON: NONE HISTORY: fall CT DLP: 1328.7 mGycm Automated exposure control for dose reduction was used. TECHNIQUE: CT scan of the head and cervical spine are performed without contrast. FINDINGS: BRAIN: Central structures are midline. There is no evidence of hydrocephalus. No acute focal lesion, mass effect or midline shift is seen. I do not see evidence of intracranial blood. Visualized portions of the paranasal sinuses and mastoids are clear. The bony calvarium is intact. IMPRESSION: NORMAL CT SCAN OF THE BRAIN. CERVICAL SPINE: There are mild emphysematous changes throughout the lungs. There is some dependent at electasis within the dependent portions of the lungs. Prevertebral soft tissues are normal. There is a mild reversal of the normal cervical lordosis. Alignment is within normal limits. Atlantoa xial relationships are normal. There is diffuse degenerative disc disease and hypertrophic spondylosis most marked at C4-5 and C5-6. Also present at C6-7 and C3-4. There are uncovertebral joint changes present at these levels as well . There is mild facet arthropathy bilaterally at C3-3 and C3-4. No discal protrusion is seen. No frac ture is identified. IMPRESSION: 1. NO ACUTE OSSEOUS LESION. 2. MODERATE DEGENERATIVE CHANGE.
[2019-01-30 13:54] LABS: Basophils # (A) 0.1 k/uL (0-0.2); Basophils % (A) 1 %; Eosinophils # (A) 0.1 k/uL (0-0.7); Eosinophils % (A) 1 %; HCT 43.1 % (34.0-46.0); HGB 14.4 gm/dL (11.4-16.0); Lymphocytes % (A) 11 %; MCH 31.5 pg (25.0-35.0); MCHC 33.4 g/dL (31.0-37.0); MCV 94.2 fL (80.0-100.0); Mean Platelet Volume 6.6; Monocytes # (A) 0.3 k/uL (0-1.0); Monocytes % (A) 3 %; Neutrophils # (A) 7.7 k/uL (1.3-7.7); Neutrophils % (A) 84 %; Platelet Count 302 k/uL (150-450); RBC 4.57 m/uL (3.80-5.40); RDW 12.3 % (11.5-15.5); WBC 9.2 k/uL (3.8-10.6)
[2019-01-30 14:03] LABS: INR 0.9 (<1.2); Partial Thromboplastin Time 26.3 sec (22.0-30.0)
[2019-01-30 14:09] LABS: ALT 34 U/L (9-52); AST 27 U/L (14-36); Acetaminophen <10.0 ug/mL; African American GFR (CKD) >90 (>60 ml/min/1.73 sqM); Albumin 3.9 g/dL (3.5-5.0); Alcohol <10 mg/dL; Alkaline Phosphatase 119 U/L (38-126); Blood Urea Nitrogen 13 mg/dL (7-17); Calcium 9.3 mg/dL (8.4-10.2); Carbon Dioxide 26 mmol/L (22-30); Creatine Kinase 50 U/L (30-135); Glucose 110 mg/dL (74-99); Magnesium 1.9 mg/dL (1.6-2.3); Non-African American GFR(CKD) >90 (>60 ml/min/1.73 sqM); Salicylate <1.0 mg/dL; Sodium 142 mmol/L (137-145); Total Bilirubin 0.4 mg/dL (0.2-1.3); Total Protein 6.9 g/dL (6.3-8.2)
[2019-01-30 14:20] LABS: Anion Gap 5 mmol/L; Chloride 111 mmol/L (98-107); Potassium 3.8 mmol/L (3.5-5.1)
--- NOTE | 2019-01-30 15:16 | XR ---
EXAMINATION TYPE: XR chest 1V portable DATE OF EXAM: 01/30/2019 COMPARISON: 03/19/2018 HISTORY: Pain TECHNIQUE: Single frontal view of the chest is obtained. FINDINGS: There is no focal air space opacity, pleural effusion, or pneumothorax seen. The cardiac silhouette size is within normal limits. The osseous structures are intact. Postsurgical change left shoulder. Arthropathy right shoulder. No overt failure. Heart size normal. A therosclerotic change aorta. IMPRESSION: No acute process.
--- NOTE | 2019-01-30 15:17 | XR ---
EXAM TYPE: LUMBAR SPINE X RAY SERIES COMPARISON: NONE HISTORY: Pain TECHNIQUE: 3 views are submitted. FINDINGS: Alignment is anatomic. The pedicles are intact. The transverse processes are intact. Hypertrophic and degenerative disc disease noted with the severe changes L5-S1. Vacuum disc at L1-2 and L2-3. Grad e 1 anterolisthesis L4 and L5 with facet arthropathy at levels L4-5 and L5-S1. No compression deformi ties. Mild diffuse osteopenia. Bilateral changes of sacroiliitis. IMPRESSION: 1. Multilevel degenerative disc disease with facet arthropathy involving the lower lumbar spine in a grade 1 anterolisthesis L4 and L5. 2. Bilateral sacroiliitis
[2019-01-30 15:45] VITALS: RESP 18
[2019-01-30 17:51] LABS: Amphetamine Screen,Urine Not Detected (NotDetected); Barbiturate Screen,Urine Not Detected (NotDetected); Benzodiazepines Screen,Urine Not Detected (NotDetected); Cocaine Screen,Urine Not Detected (NotDetected); Methadone Screen, Urine Not Detected (NotDetected); Opiate Screen,Urine Not Detected (NotDetected); Oxycodone Screen, Urine Not Detected (NotDetected); Phencyclidine Screen,Urine Not Detected (NotDetected); Tricyclic Antidepressant,Urine Not Detected (NotDetected); Urn Cannabinoid Scrn Detected (NotDetected)
[2019-01-30 17:56] LABS: Appearance,Urine Clear (Clear); Bilirubin,Urine Negative (Negative); Blood,Urine Negative (Negative); Color,Urine Light Yellow; Glucose,Urine (UA) Negative (Negative); Ketones,Urine Negative (Negative); Leukocyte Esterase,Urine Negative (Negative); Nitrite,Urine Negative (Negative); Protein,Urine Negative (Negative); Specific Gravity,Urine 1.008 (1.001-1.035); Urobilinogen,Urine <2.0 mg/dL (<2.0)
[2019-01-30 19:16] VITALS: BP 142/80; PULSE 92
--- NOTE | 2019-01-30 20:53 | XR ---
EXAMINATION TYPE: XR thoracic spine 2V DATE OF EXAM: 01/30/2019 CLINICAL HISTORY: Fall with mid back pain. TECHNIQUE: Frontal, lateral, and swimmer's view of thoracic spine are obtained. COMPARISON: None. FINDINGS: Limited evaluation of the upper thoracic spine due to overlapping soft tissues. Bony alignment is sammie ntained. Apparent lucency through the superior endplate of T5 noted on the frontal view. IMPRESSION: Lucency through the superior endplate of T5 is indeterminate. Correlation for point tenderness is rec ommended. Consider dedicated thoracic spine CT.
== END 2019-01-30 19:15 | disposition home or self-care (01) ==
LOC: EC 12:13
DX: R41.0 Disorientation, unspecified (principal); R07.9 Chest pain, unspecified; R11.2 Nausea with vomiting, unspecified; M54.9 Dorsalgia, unspecified; F17.200 Nicotine dependence, unspecified, uncomplicated; Z98.890 Other specified postprocedural states; W11.XXXA Fall on and from ladder, initial encounter
CPT/HCPCS: 99284 ×2; 96374 ×2; 96361 ×2; 36415; 93005; 80053; 82140; 82550; 83690; 83735; 84100; 84484; 85025; 85610; 81003; 85730; 80306; 83520; 72070; 72100; 71045; 72125; 70450; G0480 ×2; J2405; 80320; 80329

== ENCOUNTER 2020-12-22 12:03 | Emergency (ER) | payer MEDICARE ==
[2020-12-22 12:38] VITALS: TEMP 98.8
[2020-12-22] MEDS ORDERED: ONDANSETRON 4 MG/2 ML VIAL IVP STA (14:59)
[2020-12-22] MEDS ORDERED: SODIUM CHLORIDE 0.9% 1,000 ML IV ONE (14:59)
[2020-12-22] MEDS ORDERED: fentaNYL (PF) 50 MCG/ML 2 ML AMP IVP STA (14:59)
[2020-12-22 15:15] VITALS: BP 111/80; PULSE 118; RESP 16
[2020-12-22 15:38] LABS: Basophils # (A) 0.1 k/uL (0-0.2); Basophils % (A) 1 %; Eosinophils # (A) 0.1 k/uL (0-0.7); Eosinophils % (A) 1 %; HCT 46.6 % (34.0-46.0); HGB 15.6 gm/dL (11.4-16.0); Lymphocytes # (A) 1.4 k/uL (1.0-4.8); Lymphocytes % (A) 12 %; MCH 32.3 pg (25.0-35.0); MCHC 33.4 g/dL (31.0-37.0); MCV 96.6 fL (80.0-100.0); Mean Platelet Volume 7.4; Monocytes # (A) 0.4 k/uL (0-1.0); Monocytes % (A) 4 %; Neutrophils # (A) 9.9 k/uL (1.3-7.7); Neutrophils % (A) 82 %; Platelet Count 299 k/uL (150-450); RBC 4.82 m/uL (3.80-5.40); RDW 12.5 % (11.5-15.5); WBC 12.1 k/uL (3.8-10.6)
[2020-12-22 15:43] LABS: Appearance,Urine Clear (Clear); Bilirubin,Urine Negative (Negative); Blood,Urine Negative (Negative); Color,Urine Yellow; Glucose,Urine (UA) Negative (Negative); Ketones,Urine 1+ (Negative); Leukocyte Esterase,Urine Negative (Negative); Nitrite,Urine Negative (Negative); PH, Urine 5.5 (5.0-8.0); Protein,Urine Trace (Negative); Specific Gravity,Urine 1.017 (1.001-1.035); Urobilinogen,Urine <2.0 mg/dL (<2.0)
[2020-12-22 15:52] LABS: ALT 29 U/L (4-34); AST 32 U/L (14-36); African American GFR (CKD) >90 (>60 ml/min/1.73 sqM); Albumin 4.8 g/dL (3.5-5.0); Alkaline Phosphatase 133 U/L (38-126); Anion Gap 12 mmol/L; Blood Urea Nitrogen 12 mg/dL (7-17); C Reactive Protein 2.8 mg/dL (<1.0); Calcium 10.1 mg/dL (8.4-10.2); Carbon Dioxide 18 mmol/L (22-30); Chloride 106 mmol/L (98-107); Glucose 115 mg/dL (74-99); INR 0.9 (<1.2); Non-African American GFR(CKD) >90 (>60 ml/min/1.73 sqM); Partial Thromboplastin Time 25.5 sec (22.0-30.0); Potassium 4.2 mmol/L (3.5-5.1); Prothrombin Time 10.2 sec (9.0-12.0); Sodium 136 mmol/L (137-145); Total Bilirubin 0.9 mg/dL (0.2-1.3); Total Protein 8.4 g/dL (6.3-8.2)
--- NOTE | 2020-12-22 16:32 | CT ---
EXAMINATION TYPE: CT lumbar spine wo con DATE OF EXAM: 12/22/2020 COMPARISON: None HISTORY: 70 year-old female with low back pain TECHNIQUE: Contiguous axial scanning of the lumbar spine without IV contrast. Coronal and sagittal re constructions performed. CT DLP: 944.2 mGycm Automated exposure control for dose reduction was used. FINDINGS: There is a 2.5 cm low-density nodule of the right adrenal gland suggestive of a benign lipid rich adr enal adenoma. There is a cystic lesion of each ovary measuring 2.6 cm on the right and 1.7 cm on the left, abnormal in a postmenopausal female. Severe dissection plate degenerative change L5-S1 with endplate sclerosis and vacuum phenomenon. Mode rate to severe L1-L2 and L2-L3. Disc bulges are present at multiple levels. Facet arthropathy mid to lower lumbar spine. Variable mild narrowing of the spinal canal due to disc bulges. Alignment is maintained. On the left, changes result in mild multilevel neuroforaminal stenosis, more moderate at L5-S1. On the right, changes result in mild to moderate neuroforaminal stenoses throughout. IMPRESSION: 1. MODERATE TO ADVANCED DEGENERATIVE DISC DISEASE PARTICULARLY AT L5-S1. LESSER DEGREE AT L1-L2 AND L 2-L3. 2. POSTERIOR DISC BULGING AT MULTIPLE LEVELS CONTRIBUTES TO VARIABLE MILD SPINAL CANAL STENOSIS. 3. MILD TO MODERATE BILATERAL NEUROFORAMINAL STENOSES, MORE SO ON THE RIGHT. 4. NO VERTEBRAL COMPRESSION COLLAPSE. 5. AN ABNORMAL CYSTIC LESION OF EACH OVARY MEASURING 2.6 CM ON THE RIGHT AND 1.7 CM ON THE LEFT. KARLIE MMEND NONEMERGENT FOLLOW-UP PELVIC ULTRASOUND TO ATTEMPT FURTHER CHARACTERIZATION AND TO DETERMINE SANON BSEQUENT SURVEILLANCE. 6. 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
[2020-12-22] MEDS ORDERED: methylPREDNISolone SOD SUCCI 125 MG/2 ML VIAL IV STA (16:46)
[2020-12-22] MEDS ORDERED: HYDROmorphone 1 MG/ML 1 ML SYRINGE IVP STA (16:46)
--- NOTE | 2020-12-22 16:52 | ED ---
Back Pain HPI - General Chief Complaint: Back Pain/Injury Stated Complaint: Back pain, leg numbness Time Seen by Provider: 12/22/20 14:46 Source: patient, family, RN notes reviewed Limitations: no limitations - History of Present Illness Initial Comments: This a 70-year-old female presents emergency Department with chief complaint low back pain. Patient states she's had chronic back pain for 20+ years. Patient states she's had procedures by Dr. Pradip Bella in the past. She is last procedure was 10 years ago. Over the last couple years she's had increasing back pain, leg numbness for over one year. Patient states the pain in her back seemed to worsen over the last couple weeks today. She states she has no urinary retention states she is able to urinate without difficulty other than is difficult to sit and stand secondary to pain she states that she has no d ifficulty moving other than pain she states she can physically move without difficulty. Patient states she had some urgency of stool Doppler day was able to make it. But she did not have any known incontinence. Patient states that she does not taking anything currently for pain. She did contact orthopedics associate who recommended to come emergency from for possible MRI. - Related Data Home Medications Medication Instructions Recorded Confirmed Ibuprofen [Motrin Ib] 800 mg PO Q8H PRN 12/22/20 12/22/20 Magnesium 250 mg PO DAILY 12/22/20 12/22/20 Multivitamins, Thera [Multivitamin 1 tab PO DAILY 12/22/20 12/22/20 (formulary)] Potassium Gluconate [Potassium 99 mg PO DAILY 12/22/20 12/22/20 Gluconate ER] Vitamin B-12 Complex 1 tab PO DAILY 12/22/20 12/22/20 Previous Rx's Medication Instructions Recorded HYDROcodone/APAP 7.5-325MG [[place] 1 tab PO Q6HR PRN 3 Days #12 tab 12/22/20 7.5-325] Ibuprofen [Motrin] 600 mg PO Q8HR PRN #20 tab 12/22/20 predniSONE 50 mg PO DAILY #5 tab 12/22/20 Allergies Allergy/AdvReac Type Severity Reaction Status Date / Time No Known Allergies Allergy Verified 12/22/20 15:53 Review of Systems ROS Statement: Those systems with pertinent positive or pertinent negative responses have been documented in the HPI. ROS Other: All systems not noted in ROS Statement are negative. Past Medical History Past Medical History: No Reported History History of Any Multi-Drug Resistant Organisms: None Reported Past Surgical History: Section, Orthopedic Surgery Additional Past Surgical History / Comment(s): shoulder, back sx Past Anesthesia/Blood Transfusion Reactions: No Reported Reaction Past Psychological History: No Psychological Hx Reported Smoking Status: Former smoker Past Alcohol Use History: Occasional Past Drug Use History: None Reported General Exam Limitations: no limitations General appearance: alert, in no apparent distress Head exam: Present: atraumatic, normocephalic, normal inspection Neck exam: Present: normal inspection, full ROM. Absent: tenderness, meningismus, lymphadenopathy Respiratory exam: Present: normal lung sounds bilaterally. Absent: respiratory distress, wheezes, rales, rhonchi, stridor Cardiovascular Exam: Present: regular rate, normal rhythm, normal heart sounds. Absent: systolic murmur, diastolic murmur, rubs, gallop, clicks GI/Abdominal exam: Present: soft, normal bowel sounds. Absent: distended, tenderness, guarding, rebound, rigid Extremities exam: Present: other (Lower extremity strength equal bilaterally, neurovascular intact patient does report mild decreased sensation but can equally feel pain with range of motion.) Back exam: Present: tenderness, muscle spasm, paraspinal tenderness. Absent: full ROM, vertebral tenderness Neurological exam: Present: alert, reflexes normal. Absent: motor sensory deficit Course Vital Signs 12/22/20 12/22/20 12:33 15:15 Temperature 98.8 F Pulse Rate 102 H 118 H Respiratory 18 16 Rate Blood Pressure 75/41 111/80 O2 Sat by Pulse 97 96 Oximetry Medical Decision Making - Medical Decision Making Patient CT shows severe degenerative changes primarily at L5-S1 but throughout the lumbar spine. Patient does not have any red flag symptoms though patient was given very strict return parameters knowing her condition. Patient was g iven steroids, pain control and will follow-up on Friday with orthopedics associate she does understands she is to return if any change symptoms. Patient's bladder scan was negative for retention she's had no incontinence - Lab Data Result diagrams: 12/22/20 15:21 12/22/20 15:21 Lab Results 12/22/20 12/22/20 12/22/20 Range/Units 15:21 15:21 15:21 WBC 12.1 H (3.8-10.6) k/uL RBC 4.82 (3.80-5.40) m/uL Hgb 15.6 (11.4-16.0) gm/dL Hct 46.6 H (34.0-46.0) % MCV 96.6 (80.0-100.0) fL MCH 32.3 (25.0-35.0) pg MCHC 33.4 (31.0-37.0) g/dL RDW 12.5 (11.5-15.5) % Plt Count 299 (150-450) k/uL MPV 7.4 Neutrophils % 82 % Lymphocytes % 12 % Monocytes % 4 % Eosinophils % 1 % Basophils % 1 % Neutrophils # 9.9 H (1.3-7.7) k/uL Lymphocytes # 1.4 (1.0-4.8) k/uL Monocytes # 0.4 (0-1.0) k/uL Eosinophils # 0.1 (0-0.7) k/uL Basophils # 0.1 (0-0.2) k/uL PT 10.2 (9.0-12.0) sec INR 0.9 (<1.2) APTT 25.5 (22.0-30.0) sec Sodium 136 L (137-145) mmol/L Potassium 4.2 (3.5-5.1) mmol/L Chloride 106 (98-107) mmol/L Carbon Dioxide 18 L (22-30) mmol/L Anion Gap 12 mmol/L BUN 12 (7-17) mg/dL Creatinine 0.62 (0.52-1.04) mg/dL Est GFR (CKD-EPI)AfAm >90 (>60 ml/min/1.73 sqM) Est GFR (CKD-EPI)NonAf >90 (>60 ml/min/1.73 sqM) Glucose 115 H (74-99) mg/dL Calcium 10.1 (8.4-10.2) mg/dL Total Bilirubin 0.9 (0.2-1.3) mg/dL AST 32 (14-36) U/L ALT 29 (4-34) U/L Alkaline Phosphatase 133 H (38-126) U/L C-Reactive Protein 2.8 H (<1.0) mg/dL Total Protein 8.4 H (6.3-8.2) g/dL Albumin 4.8 (3.5-5.0) g/dL Urine Color Urine Appearance (Clear) Urine pH (5.0-8.0) Ur Specific [place] (1.001-1.035) Urine Protein (Negative) Urine Glucose (UA) (Negative) Urine Ketones (Negative) Urine Blood (Negative) Urine Nitrite (Negative) Urine Bilirubin (Negative) Urine Urobilinogen (<2.0) mg/dL Ur Leukocyte Esterase (Negative) 12/22/20 Range/Units 15:21 WBC (3.8-10.6) k/uL RBC (3.80-5.40) m/uL Hgb (11.4-16.0) gm/dL Hct (34.0-46.0) % MCV (80.0-100.0) fL MCH (25.0-35.0) pg MCHC (31.0-37.0) g/dL RDW (11.5-15.5) % Plt Count (150-450) k/uL MPV Neutrophils % % Lymphocytes % % Monocytes % % Eosinophils % % Basophils % % Neutrophils # (1.3-7.7) k/uL Lymphocytes # (1.0-4.8) k/uL Monocytes # (0-1.0) k/uL Eosinophils # (0-0.7) k/uL Basophils # (0-0.2) k/uL PT (9.0-12.0) sec INR (<1.2) APTT (22.0-30.0) sec Sodium (137-145) mmol/L Potassium (3.5-5.1) mmol/L Chloride (98-107) mmol/L Carbon Dioxide (22-30) mmol/L Anion Gap mmol/L BUN (7-17) mg/dL Creatinine (0.52-1.04) mg/dL Est GFR (CKD-EPI)AfAm (>60 ml/min/1.73 sqM) Est GFR (CKD-EPI)NonAf (>60 ml/min/1.73 sqM) Glucose (74-99) mg/dL Calcium (8.4-10.2) mg/dL Total Bilirubin (0.2-1.3) mg/dL AST (14-36) U/L ALT (4-34) U/L Alkaline Phosphatase (38-126) U/L C-Reactive Protein (<1.0) mg/dL Total Protein (6.3-8.2) g/dL Albumin (3.5-5.0) g/dL Urine Color Yellow Urine Appearance Clear (Clear) Urine pH 5.5 (5.0-8.0) Ur Specific [place] 1.017 (1.001-1.035) Urine Protein Trace H (Negative) Urine Glucose (UA) Negative (Negative) Urine Ketones 1+ H (Negative) Urine Blood Negative (Negative) Urine Nitrite Negative (Negative) Urine Bilirubin Negative (Negative) Urine Urobilinogen <2.0 (<2.0) mg/dL Ur Leukocyte Esterase Negative (Negative) Disposition Clinical Impression: Lumbar radiculopathy, acute Disposition: HOME SELF-CARE Condition: Stable Instructions (If sedation given, give patient instructions): Acute Low Back Pain (ED) Additional Instructions: Please return to the Emergency Department if symptoms worsen or any other concerns. Prescriptions: Ibuprofen [Motrin] 600 mg PO Q8HR PRN #20 tab PRN Reason: Pain HYDROcodone/APAP 7.5-325MG [[place] 7.5-325] 1 tab PO Q6HR PRN 3 Days #12 tab PRN Reason: pain predniSONE 50 mg PO DAILY #5 tab Is patient prescribed a controlled substance at d/c from ED?: Yes When asked, does pt state using other controlled substances?: No If prescribed controlled substance>3 days was MAPS reviewed?: Prescribed <3 Days If opioid is for acute pain is fill amount 7 days or less?: Yes If Rx opioid, was Start Talking consent form obtained?: Yes Referrals: None,Stated [Primary Care Provider] - 1-2 days Mitra Fox, [Doctor of Osteopathic Medicine] - 1-2 days Time of Disposition: 16:48
== END 2020-12-22 17:15 | disposition home or self-care (01) ==
LOC: EC 12:03
DX: M54.16 Radiculopathy, lumbar region (principal); Z87.891 Personal history of nicotine dependence
CPT/HCPCS: 99284 ×2; 96374 ×2; 96375 ×4; 96361 ×2; 51798; 36415; 80053; 85025; 85610; 85730; 86140; 81003; 72131; J2930; J2405; J3010; J1170

== ENCOUNTER → 2021-04-18 | Outpatient (CLI) | payer MEDICARE ==
[2021-04-18 13:13] VITALS: BP 159/72; PULSE 62; RESP 18; TEMP 98
--- NOTE | 2021-04-18 13:29 | P.CON ---
Consult Note - . Consult date: 04/18/21 Assessment/Plan:: HISTORY OF PRESENT ILLNESS: 70 yr old female as a referral from Dr Fox presents today with neck pain due to dextroscoliosis, spinal stenosis, neuroforaminal stenoses and facet arthropathy for evaluation. Patient states her neck pain is 5 out of 10 in intensity, throbbing, dull, achy in the middle aspect of her cervical spine with accompanying shooting numbness to the fingers bilaterally. Pain escalates as high as 8 out of 10 in intensity with extension or lifting with the upper extremities. Pain is relieved with Tramadol from Dr. Fox, ice, heat, daily home exercise regimen, signs and rest. Past Medical History: No Reported History Past Surgical History: Section, Lumbar Surgery, Shoulder Surgery Social History: Daily tobacco user, Occassional ETOH use, Cannabis use. Family History: All: NKDA Meds: See list REVIEW OF ORGAN SYSTEMS: CONSTITUTIONAL: No fevers or chills. No recent weight loss. HEENT: No visual acuity loss, eye pain, difficulties with hearing. No nosebleeds. No difficulty swallowing. RESPIRATORY: Denies any troubles with breathing or dyspnea on exertion. CARDIOVASCULAR: Denies any chest pain, palpitations, or recent heart attacks. GASTROINTESTINAL: Denies fatty food intolerance. Has change in bowel habits and gas bloat. GENITOURINARY: Denies any blood in urine. Has increased urinary frequency. NEUROLOGICAL: + numbness and tingling along the distal extremities. No seizure disorders or headaches. MUSCULOSKELETAL: + back pain SKIN: No skin cancer. No rash. PSYCHIATRIC: Denies current depression or suicidal thoughts. ENDOCRINE: Denies current thyroid disorders. Denies any blood sugar glucose intolerance. HEME/LYMPHATIC: Denies any lumps and bumps around the neck. History of deep venous thrombosis. ALLERGY/IMMUNOLOGY: No immunoglobulin therapy. No immune deficiencies. BREAST: Denies current breast lumps, pain or nipple discharge. Physical Examinations : Constitutional : Cooperative , not in acute distress . HEENT: Neck supple. No Lymphadenopathy. Normal thyroid size . Eyes no ptosis , no icterus, no photophobia . Hearing intact. Normal oropharynx. No Thrush. Respiratory : Chest clear to auscultations bilaterally. No wheezing. No rhonchi. Cardiovascular : Regular rate and rhythm , S1 / S2. No S3 . No S4. Gastrointestinal : Abdomen soft. No tenderness. Bowel sounds x 4. No organomegaly . Genitourinary : Deferred. Neurologic : Cranial nerve II to XII intact. No focal neurological deficits. Psychiatric : alert & oriented x 3. Matching mood & appropriate affect. Judgment & insight intact. Lymphatic No Lymphadenopathy. Musculoskeletal : Cervical Spine Motor strength in the deltoid and biceps: Normal right side. Normal Left side Motor strength biceps and the wrist extensors: Normal right side . Normal left side Motor strength in the triceps muscle: Normal right side. Normal left side Deep tendon reflexes: Normal at the biceps. Normal at Brachioradialis. Normal at triceps Vertebral body tenderness over C4, C5 Cervical facet loading test: positive right> left Spurling test: positive bilaterally Neck distraction test: positive bilaterally Yevgeniy sign: positive bilaterally Lumbar spine Motor strength lower extremities ,thigh and legs 5/5 Right side , 5/5 Left side Deep tendon reflexes : Normal Knee Jerk. Normal Ankle Jerk Vertebral body tenderness over Lumbar facet Loading Test: positive Right / positive Left Range of motion of the lumbar spine Flexion 30 degrees, extension 10 degrees Straight Leg Raise test: Left/ Right positive at degree Vivi test: positive right / positive left. Severe tenderness over the Sacroiliac joint on the Right / Left sides Gaenslen test: positive bilaterally Seated flexion test: positive bilaterally. Imaging: MRI of the cervical spine without contrast from 02/09/21 reviewed Assessment/ Plan : Recommendation of CHLOE C4 to C5 May need a series of injections (up to 3 within a six-month period) to obtain sufficient pain relief Discussed with patient she may also need facet blocks of the medial branches if need be Risks, benefits of procedure discussed and patient verbalized understanding. Denies aspirin or anti- coagulant use. Denies history of diabetes. All questions answered. I have spent greater than 50 minutes on patient care today. Dr Proctor was available by phone for the evaluation of this patient. The time was used to review the medical records including relevant urine studies and Prescription history (MAPs), review of the available imaging, evaluation and examination of the patient, coordination of care with the medical staff and if applicable referring physicians, as well as creation of the medical record PQRS Measure Charge Sheet Mode of Arrival: Ambulatory - Pain Location Upper Neck Non-Pharmacological Interventions: Heat, Home Exercise, Ice, Position/Reposition, Stretching Pharmacological Interventions: Medication PQRS Narrative: Smoking Status Current every day smoker Blood Pressure 159/72 Pain Intensity [Upper Neck] 5 Scale Used Numeric (1 - 10) Hx Alcohol Use (MH) Yes Home Medications: Ambulatory Orders Potassium Gluconate [Potassium Gluconate ER] 99 mg PO DAILY 12/22/20 Cider Vinegar [Apple Cider Vinegar] 300 mg PO DAILY 03/15/21 Collagen (Unknown Dose) 1 dose PO DAILY 03/15/21 Magnesium 500 mg PO DAILY 03/15/21 Multivit with Calcium,Iron,Min [Women's Multivitamin] 1 each PO DAILY 03/15/21 Vitamin B-12 (Unknown Dose) 1 tab PO DAILY 03/15/21 Vitamin C/Biotin [Hair, Skin and Nails Chew] 1 tab PO DAILY 03/15/21 traMADol HCL 50 mg PO Q8H PRN 03/15/21
== END ==
LOC: PNWHC3 12:23
PROVIDERS: ATTEND Physician Assistant Medical
DX: M48.02 Spinal stenosis, cervical region (principal); M47.812 Spondylosis without myelopathy or radiculopathy, cervical region; M41.80 Other forms of scoliosis, site unspecified; F17.200 Nicotine dependence, unspecified, uncomplicated
CPT/HCPCS: 99211

== ENCOUNTER 2021-05-10 11:05 | Day surgery (SDC) | payer MEDICARE ==
[2021-05-08 11:43] VITALS: BMI 25.9
[~2021-05-10 11:05] MED LIST: LACTATED RINGERS 1,000 ML IV SCH; LIDOCAINE 1% (10MG/ML) FOR IV START INTRADERMA PRN
[2021-05-10 11:29] VITALS: BP 144/87; PULSE 76; RESP 16; TEMP 98.2
[2021-05-10] MEDS ORDERED: fentaNYL (PF) 50 MCG/ML 2 ML AMP ONE (12:34)
[2021-05-10] MEDS ORDERED: IOPAMIDOL M200 10 ML VIAL ONE (12:34)
[2021-05-10] MEDS ORDERED: MIDAZOLAM 2 MG/2 ML VIAL ONE (12:34)
[2021-05-10] MEDS ORDERED: DEXAMETHASONE SOD PHOSPHATE 10 MG/ML 1 ML VIAL ONE (12:34)
--- NOTE | 2021-05-10 12:49 | P.PCN ---
Date of Procedure: 05/10/21 Procedure(s) Performed: . PROCEDURE 1. Cervical epidural steroid injection under fluoroscopic guidance, C4-5 (fluoroscopy images available in the radiology department ) 2. Cervical epidurogram. PREOPERATIVE DIAGNOSIS: 1- Cervical Degenerative Disc Diseases 2-cervical spondylosis with cervical Facet arthropathy without myelopathy POSTOPERATIVE DIAGNOSIS: : 1- Cervical Degenerative Disc Diseases , 2-cervical spondylosis with cervical Facet arthropathy without myelopathy ANESTHESIA: Local anesthesia with lidocaine 1 % , and moderate sedation, with Versed 2 mg and Fentanyl 100 mcg. EBL 0 PROCEDURE INDICATION: The patient with neck pain and radiculitis unresponsive to conservative treatment consents for procedure. PROCEDURE DESCRIPTION / TECHNIQUE: The patient was seen and identified in the preoperative area. Risks, benefits, complications, including but not limited to infections ,bleeding , allergic reactions to the medications ,and not complete pain releife, and alternatives were discussed with the patient, the patient agreed to proceed with the procedure and signed the consent. Patient was taken to the OR and time out was completed. The patient was placed in the prone position on the procedure table. A pillow was placed under the patients chest to increase the cervical interlaminar space. The cervical area was prepped and draped in the usual sterile fashion. Vital signs were closely monitored during the procedure. Conscious sedation was used during the procedure to decrease patients anxiety. Using anterior-posterior fluoroscopy, the C4-5 interlaminar space was identified and the skin over this site was marked and then infiltrated with 1% lidocaine subcutaneously. Subsequently, a 20-gauge 3-1/2-inch Tuohy epidural needle was inserted and advanced toward the epidural space by means of the ``hanging-drop technique and guided by AP and lateral fluoroscopy. The correct needle position in the epidural space was verified with the injection of 2 mL of the water soluble contrast dye [id number]-[id number] and observing an excellent epidurogram with the epidural spread of the dye, after negative aspiration for blood and CSF and in the absence of paresthesias. then, mixture containing 20 mg Dexamethasone and 2 ml of preservative-free normal saline injected and a washout of epidurogram was seen. Needle was withdrawn intact, skin was cleansed, and bandages were applied. Complications= none. Disposition= patient was placed in supine position and transferred to the recovery room area in stable condition and there was no evidence of upper or lower extremity motor or sensory deficit after the procedure patient was discharged from recovery room after discharge criteria met and home discharge instructions was given by the staff and patient will follow with the pain clinic in 2-4 weeks
[2021-05-10] MEDS ORDERED: IV FLUID CONTINUATION 600 ML IV ONE (12:54)
--- NOTE | 2021-05-10 13:01 | FL ---
Fluoroscopy HISTORY: Pain 6 seconds fluoroscopy time supplied to the referring clinician. 2 intraoperative C-arm images docume nt the procedure. See dictated report from anesthesia.
== END 2021-05-10 13:24 | disposition home or self-care (01) ==
LOC: ORPAIN 11:05
PROVIDERS: ATTEND Specialist
DX: M50.10 Cervical disc disorder with radiculopathy, unspecified cervical region (principal); M47.22 Other spondylosis with radiculopathy, cervical region
CPT/HCPCS: 62321; J2250; J1100; J3010; Q9966; 99152

== ENCOUNTER 2021-05-30 12:46 | Observation (INO) | payer MEDICARE ==
[2021-05-30] MEDS ORDERED: HYDROmorphone 1 MG/ML 1 ML SYRINGE IVP STA (14:01)
[2021-05-30 14:24] LABS: ALT 20 U/L (4-34); AST 26 U/L (14-36); African American GFR (CKD) >90 (>60 ml/min/1.73 sqM); Albumin 4.7 g/dL (3.5-5.0); Alkaline Phosphatase 155 U/L (38-126); Anion Gap 11 mmol/L; Blood Urea Nitrogen 11 mg/dL (7-17); Calcium 9.7 mg/dL (8.4-10.2); Carbon Dioxide 25 mmol/L (22-30); Chloride 104 mmol/L (98-107); Glucose 127 mg/dL (74-99); Lipase 94 U/L (23-300); Magnesium 1.9 mg/dL (1.6-2.3); Non-African American GFR(CKD) >90 (>60 ml/min/1.73 sqM); Potassium 3.9 mmol/L (3.5-5.1); Sodium 140 mmol/L (137-145); Total Bilirubin 0.7 mg/dL (0.2-1.3); Total Protein 8.5 g/dL (6.3-8.2)
[2021-05-30 14:27] LABS: Basophils # (A) 0.1 k/uL (0-0.2); Basophils % (A) 1 %; Eosinophils % (A) 1 %; HCT 51.1 % (34.0-46.0); HGB 17.2 gm/dL (11.4-16.0); Lymphocytes # (A) 1.1 k/uL (1.0-4.8); Lymphocytes % (A) 14 %; MCH 31.2 pg (25.0-35.0); MCHC 33.7 g/dL (31.0-37.0); MCV 92.5 fL (80.0-100.0); Mean Platelet Volume 7.6; Monocytes # (A) 0.3 k/uL (0-1.0); Monocytes % (A) 3 %; Neutrophils # (A) 6.7 k/uL (1.3-7.7); Neutrophils % (A) 80 %; Platelet Count 300 k/uL (150-450); RBC 5.53 m/uL (3.80-5.40); RDW 13.5 % (11.5-15.5); WBC 8.4 k/uL (3.8-10.6)
[2021-05-30 14:32] LABS: Prothrombin Time 10.5 sec (9.0-12.0)
--- NOTE | 2021-05-30 14:33 | XR ---
EXAMINATION TYPE: XR chest 1V portable DATE OF EXAM: 05/30/2021 COMPARISON: 01/30/2019 HISTORY: Pain TECHNIQUE: Single frontal view of the chest is obtained. FINDINGS: Postsurgical change left shoulder with arthropathy of the right shoulder and diffuse osteo penia. Limited inspiration heart size normal. No overt failure. Mildly coarsened interstitium. No ple ural effusion or pneumothorax IMPRESSION: No acute process.
--- NOTE | 2021-05-30 15:40 | ED ---
General Adult HPI - General Chief complaint: Abdominal Pain Stated complaint: NVD Source: patient, RN notes reviewed, old records reviewed Mode of arrival: ambulatory Limitations: no limitations - History of Present Illness Initial comments: 70-year-old female presenting with chest pain which began yesterday. This is left-sided chest pain radiating into her back. She also reports some upper abdominal pain associated with this. She has had some nausea and vomiting as well. She states that she does not have a history of coronary artery disease. She states her pain is been constant over the past approximately 18 hours. - Related Data Home Medications Medication Instructions Recorded Confirmed Vitamin C/Biotin [Hair, Skin and 1 tab PO DAILY 03/15/21 05/30/21 Nails Chew] traMADol HCL 50 mg PO Q8H PRN 03/15/21 05/30/21 Ascorbic Acid [Vitamin C] 500 mg PO DAILY 05/30/21 05/30/21 Cyanocobalamin (Vitamin B-12) 1,000 mcg PO DAILY 05/30/21 05/30/21 [Vitamin B-12] Multivitamins, Thera [Multivitamin 1 tab PO DAILY 05/30/21 05/30/21 (formulary)] Allergies Allergy/AdvReac Type Severity Reaction Status Date / Time No Known Allergies Allergy Verified 05/30/21 15:38 Review of Systems ROS Statement: Those systems with pertinent positive or pertinent negative responses have been documented in the HPI. ROS Other: All systems not noted in ROS Statement are negative. Past Medical History Past Medical History: Musculoskeletal Disorder Additional Past Medical History / Comment(s): "Heart rate fluctuates," wearing holter monitor. "Venuous" veins, legs itch and swell up, wears support hose. Chronic neck, upper back pain; some lower back pain. NT BLE. History of Any Multi-Drug Resistant Organisms: None Reported Past Surgical History: Back Surgery, Section, Orthopedic Surgery Additional Past Surgical History / Comment(s): Left shoulder surgery with pin and plate in shoulder. Pain procedure Past Anesthesia/Blood Transfusion Reactions: No Reported Reaction Additional Past Anesthesia/Blood Transfusion Reaction / Comment(s): Adopted family hx unknown. Past Psychological History: No Psychological Hx Reported Smoking Status: Former smoker Past Alcohol Use History: Occasional Past Drug Use History: Unable to Obtain - Past Family History Mother History Unknown: Yes Family Medical History: Unable to Obtain Father History Unknown: Yes Family Medical History: Unable to Obtain Additional Family Medical History / Comment(s): Patient adopted, family hx unknown. General Exam Limitations: no limitations General appearance: alert, in no apparent distress Head exam: Present: atraumatic, normocephalic Eye exam: Present: normal appearance, PERRL ENT exam: Present: normal exam Neck exam: Present: normal inspection. Absent: meningismus Respiratory exam: Present: normal lung sounds bilaterally. Absent: respiratory distress, wheezes Cardiovascular Exam: Present: regular rate, normal rhythm GI/Abdominal exam: Present: soft. Absent: distended, tenderness, guarding Extremities exam: Present: normal inspection, normal capillary refill. Absent: pedal edema Neurological exam: Present: alert, oriented X3, CN II-XII intact. Absent: motor sensory deficit Psychiatric exam: Present: normal affect, normal mood Skin exam: Present: warm, dry, intact Course Vital Signs 05/30/21 05/30/21 13:24 14:53 Temperature 98.1 F Pulse Rate 70 64 Respiratory 18 18 Rate Blood Pressure 217/95 148/91 O2 Sat by Pulse 95 96 Oximetry EKG Findings - EKG Comments: EKG Findings:: EKG: Sinus rhythm with arrhythmia, very poor quality EKG I do not see any definitive evidence of ST segment elevation. Rate is 76, NJ interval 194, QRS duration 105, QTC 434 Procedures - [place] Protocol (Time Out) Nurse: Mackenzie Smith Medical Decision Making - Medical Decision Making 70-year-old female presenting with left-sided lower chest pain radiating to the flank. Patient is initially hypertensive. Pain is moderate to severe. EKG is negative for ST segment elevation. Workup was initiated including CT of the thorax, this is negative for aortic dissection or acute abdominal findings. Patient has a normal CBC, normal CMP, negative troponin, negative lipase. She remains symptomatic while in the emergency department. She will be admitted for both symptom control, telemetry, serial cardiac enzymes and cardiology consultation. - Lab Data Result diagrams: 05/30/21 14:03 05/30/21 14:03 Lab Results 05/30/21 05/30/21 05/30/21 Range/Units 14:03 14:03 14:03 WBC 8.4 (3.8-10.6) k/uL RBC 5.53 H (3.80-5.40) m/uL Hgb 17.2 H (11.4-16.0) gm/dL Hct 51.1 H (34.0-46.0) % MCV 92.5 (80.0-100.0) fL MCH 31.2 (25.0-35.0) pg MCHC 33.7 (31.0-37.0) g/dL RDW 13.5 (11.5-15.5) % Plt Count 300 (150-450) k/uL MPV 7.6 Neutrophils % 80 % Lymphocytes % 14 % Monocytes % 3 % Eosinophils % 1 % Basophils % 1 % Neutrophils # 6.7 (1.3-7.7) k/uL Lymphocytes # 1.1 (1.0-4.8) k/uL Monocytes # 0.3 (0-1.0) k/uL Eosinophils # 0.0 (0-0.7) k/uL Basophils # 0.1 (0-0.2) k/uL PT 10.5 (9.0-12.0) sec INR 1.0 (<1.2) APTT 26.0 (22.0-30.0) sec D-Dimer 0.64 H (<0.60) mg/L FEU Sodium 140 (137-145) mmol/L Potassium 3.9 (3.5-5.1) mmol/L Chloride 104 (98-107) mmol/L Carbon Dioxide 25 (22-30) mmol/L Anion Gap 11 mmol/L BUN 11 (7-17) mg/dL Creatinine 0.63 (0.52-1.04) mg/dL Est GFR (CKD-EPI)AfAm >90 (>60 ml/min/1.73 sqM) Est GFR (CKD-EPI)NonAf >90 (>60 ml/min/1.73 sqM) Glucose 127 H (74-99) mg/dL Calcium 9.7 (8.4-10.2) mg/dL Magnesium 1.9 (1.6-2.3) mg/dL Total Bilirubin 0.7 (0.2-1.3) mg/dL AST 26 (14-36) U/L ALT 20 (4-34) U/L Alkaline Phosphatase 155 H (38-126) U/L Troponin I (0.000-0.034) ng/mL NT-Pro-B Natriuret Pep pg/mL Total Protein 8.5 H (6.3-8.2) g/dL Albumin 4.7 (3.5-5.0) g/dL Lipase 94 (23-300) U/L 05/30/21 05/30/21 Range/Units 14:03 14:03 WBC (3.8-10.6) k/uL RBC (3.80-5.40) m/uL Hgb (11.4-16.0) gm/dL Hct (34.0-46.0) % MCV (80.0-100.0) fL MCH (25.0-35.0) pg MCHC (31.0-37.0) g/dL RDW (11.5-15.5) % Plt Count (150-450) k/uL MPV Neutrophils % % Lymphocytes % % Monocytes % % Eosinophils % % Basophils % % Neutrophils # (1.3-7.7) k/uL Lymphocytes # (1.0-4.8) k/uL Monocytes # (0-1.0) k/uL Eosinophils # (0-0.7) k/uL Basophils # (0-0.2) k/uL PT (9.0-12.0) sec INR (<1.2) APTT (22.0-30.0) sec D-Dimer (<0.60) mg/L FEU Sodium (137-145) mmol/L Potassium (3.5-5.1) mmol/L Chloride (98-107) mmol/L Carbon Dioxide (22-30) mmol/L Anion Gap mmol/L BUN (7-17) mg/dL Creatinine (0.52-1.04) mg/dL Est GFR (CKD-EPI)AfAm (>60 ml/min/1.73 sqM) Est GFR (CKD-EPI)NonAf (>60 ml/min/1.73 sqM) Glucose (74-99) mg/dL Calcium (8.4-10.2) mg/dL Magnesium (1.6-2.3) mg/dL Total Bilirubin (0.2-1.3) mg/dL AST (14-36) U/L ALT (4-34) U/L Alkaline Phosphatase (38-126) U/L Troponin I <0.012 (0.000-0.034) ng/mL NT-Pro-B Natriuret Pep 190 pg/mL Total Protein (6.3-8.2) g/dL Albumin (3.5-5.0) g/dL Lipase (23-300) U/L Disposition Clinical Impression: Chest pain Disposition: ADMITTED IP TO THIS HOSP Condition: Stable Is patient prescribed a controlled substance at d/c from ED?: No Referrals: Gabriela Avendano MD [Primary Care Provider] - 1-2 days Time of Disposition: 17:40
--- NOTE | 2021-05-30 16:09 | CT ---
EXAMINATION TYPE: CT angio thor/abd pel aorta DATE OF EXAM: 05/30/2021 COMPARISON: None. HISTORY: Chest pains, nausea and vomiting CT DLP: 1273.6 mGycm. Automated Exposure Control for Dose Reduction was Utilized. CONTRAST: CTA scan of the thorax, abdomen and pelvis is performed without oral and without and with IV Contrast , patient injected with 100 mL of Isovue 370. 3-D reconstructed images were created on an independent workstation and reviewed. FINDINGS: VASCULAR: Noncontrast images show no hypodensity to suggest intramural hematoma. Postcontrast images show satisfactory enhancement of the central pulmonary arteries. 3 vessel origins from the aortic arc h without significant stenosis. Mild calcified plaque in the arch. Patent celiac artery and SMA witho ut significant stenosis. Patent JAAMR. Patent bilateral single renal arteries without significant steno sis. Mild calcified plaque in the iliac artery branches. No significant stenosis. Mild mixed plaque i n the bilateral groin region without significant stenosis. No linear hypodensity to suggest dissectio n. No aneurysm is evident. LUNGS: Mild emphysematous changes in the apices is present bilaterally. Dependent atelectasis bilater al lower lobes. No pleural effusion or pneumothorax is seen. MEDIASTINUM: There are no greater than 1 cm hilar or mediastinal lymph nodes. No cardiomegaly or pe ricardial effusion is seen. Moderate coronary artery calcifications. LIVER/GB: No significant abnormality is appreciated. PANCREAS: No significant abnormality is seen. SPLEEN: No significant abnormality is seen. ADRENALS: Low dense 2.8 cm right adrenal mass consistent with benign lipid rich adenoma axial image 5 4 KIDNEYS: No renal calculi on the noncontrast images. No hydronephrosis seen bilaterally. Small foci o f nondependent air in bladder. Correlate for recent catheterization otherwise other etiologies need t o be considered. BOWEL: Suboptimally evaluated without enteric contrast. Debris-filled stomach suggests recent meal in gestion. No suspicious small or large bowel dilatation. GENITAL ORGANS: Anteverted uterus. There is 1.9 cm low dense lesion right adnexa favoring benign simp le thin-walled cyst axial image 91. Consider nonemergent pelvic ultrasound to further evaluate and/or characterize. LYMPH NODES: No greater than 1cm abdominal or pelvic lymph nodes are appreciated. OSSEOUS STRUCTURES: Moderate disc space narrowing lumbosacral junction with endplate sclerosis. Grade 1 retrolisthesis L1 on L2. Posterior spur disc complex effaces the anterior thecal sac at this level . OTHER: No significant additional abnormality is seen. IMPRESSION: 1. No aortic aneurysm or dissection. 2. Correlate for recent attempted Gomez catheterization. No acute findings otherwise identified.
[2021-05-30] MEDS ORDERED: NALOXONE 0.4 MG/ML 1 ML VIAL IV PRN (17:50)
[2021-05-30] MEDS ORDERED: ACETAMINOPHEN TAB 325 MG TAB PO PRN (17:50)
[2021-05-30] MEDS: ONDANSETRON 4 MG/2 ML VIAL IVP PRN (18:17)
[2021-05-30] MEDS ORDERED: traMADol 50 MG TAB PO PRN (19:03)
[2021-05-30] MEDS: SODIUM CHLORIDE 0.9% 1,000 ML IV SCH (20:20)
[2021-05-30] MEDS: HYDROmorphone 1 MG/ML 1 ML SYRINGE IVP PRN (20:21)
[2021-05-30] MEDS: PANTOPRAZOLE 40 MG/10 ML VIAL IV SCH (20:21)
[2021-05-30] MEDS: ENOXAPARIN 40 MG/0.4 ML SYRINGE SQ SCH (22:32)
[2021-05-31] MEDS: HYDROmorphone 0.5 MG/0.5 ML SYRINGE IVP PRN ×6 (01:23→21:06)
[2021-05-31] MEDS: MULTIVITAMINS, THERA 1 EACH TAB PO SCH (08:17)
[2021-05-31] MEDS: ENOXAPARIN 40 MG/0.4 ML SYRINGE SQ SCH (08:17)
[2021-05-31] MEDS: PANTOPRAZOLE 40 MG/10 ML VIAL IV SCH (08:17)
[2021-05-31] MEDS: ASCORBIC ACID 500 MG TAB PO SCH (08:17)
[2021-05-31] MEDS: CYANOCOBALAMIN 500 MCG TAB PO SCH (08:17)
[2021-05-31] MEDS: SODIUM CHLORIDE 0.9% 1,000 ML IV SCH ×2 (08:18→19:36)
[2021-05-31] MEDS ORDERED: NON FORMULARY DRUG (Vitamin C/Biotin [Hair, Skin And Nails Chew] 1 EACH Tablet) PO SCH (09:00)
[2021-05-31 09:06] LABS: Basophils # (A) 0.06 X 10*3/uL (0.00-0.10); Eosinophils # (A) 0.04 X 10*3/uL (0.04-0.35); Eosinophils % (A) 0.6 %; HGB 15.3 g/dL (12.0-15.0); Immature Grans, Automated 0.3 %; Lymphocytes % (A) 30.4 %; MCH 29.8 pg (27.0-32.0); MCHC 33.3 g/dL (32.0-37.0); MCV 89.7 fL (80.0-97.0); Monocytes # (A) 0.49 X 10*3/uL (0.20-1.00); Monocytes % (A) 7.8 %; NRBC Per 100 WBC 0 /100 WBCS (0.0-0.0); Neutrophils # (A) 3.75 X 10*3/uL (1.80-7.70); Neutrophils % (A) 59.9 %; Platelet Count 283 X 10*3/uL (140-440); RBC 5.13 X 10*6/uL (4.10-5.20); RDW 13.3 % (11.5-14.5); WBC 6.26 X 10*3/uL (4.50-10.00)
[2021-05-31] MEDS ORDERED: CAFFEINE CITRATE 60 MG/3 ML VIAL IV PRN (09:08)
[2021-05-31] MEDS ORDERED: AMINOPHYLLINE 500 MG/20 ML VIAL IV PRN (09:08)
[2021-05-31] MEDS ORDERED: REGADENOSON 0.4 MG/5 ML SYRINGE IV PRN (09:08)
[2021-05-31 09:20] LABS: African American GFR (CKD) 103.2 (60.0-200.0); Albumin 4.3 g/dL (3.8-4.9); Albumin/Globulin Ratio 1.59 (1.60-3.17); Anion Gap 12.8 mmol/L (10.00-18.00); BUN/Creat Ratio 13.29 Ratio (12.00-20.00); Blood Urea Nitrogen 9.3 mg/dL (9.0-27.0); Calcium 9.6 mg/dL (8.7-10.3); Carbon Dioxide 23.2 mmol/L (20.0-27.5); Globulin 2.7 g/dL (1.6-3.3); Potassium 3.7 mmol/L (3.5-5.5); Total Bilirubin 0.4 mg/dL (0.30-1.20)
--- NOTE | 2021-05-31 10:17 | P.CRDCN ---
History of Present Illness Consult date: 05/31/21 History of present illness: HISTORY OF PRESENT ILLNESS: This is a 70-year-old female with a past medical history significant for chronic back pain with previous laminectomy, former nicotine dependence, occasional alcohol use, and daily marijuana use. Patient follows in the office with Dr. Zepeda. We have been asked to see the patient in consultation for chest pain. Patient examined at the bedside. Patient just establish care with Dr. Zepeda in April 2021. Patient was having palpitations at that time. Patient states she wore an event monitor which she just took off yesterday. She states for the past 2 days she has been having chest pain. The pain is on the left side of her chest underneath her breast. She states that the pain wraps around goes into her back. She reports the pain is significantly worse with chest wall palpation. She also reports nausea and vomiting. Patient is dry heaving at the bedside at time of my examination. She states that Dilaudid has helped her pain and made it better. Patients blood pressure was significantly elevated upon arrival. The patient states her blood pressure usually runs in the lower side at home. The patient was scheduled to undergo a Lexiscan stress test in June at the cardiology office. * EKG reveals sinus mechanism with no signs of acute ischemia * Chest xray negative for acute process * Laboratory data: WBC 6.26. Hemoglobin 15.3. Platelet count 283. D-dimer 0.64. Sodium 139. Potassium 3.7. BUN 9.3. Creatinine 0.7. Troponin negative 3. * Current home cardiac medications include none * Most recent echocardiogram obtained in 2018 revealing ejection fraction 60- 65%, mild MR, mild TR REVIEW OF SYSTEMS: At the time of my exam: CONSTITUTIONAL: Denies fever or chills. HEENT: Denies blurred vision, vision changes, or eye pain. Denies hemoptysis CARDIOVASCULAR: Denies chest pain. Denies orthopnea. Denies PND. Denies palpitations RESPIRATORY: Denies shortness of breath. GASTROINTESTINAL: Denies abdominal pain. Denies nausea or vomiting. HEMATOLOGIC: Denies bleeding disorders. GENITOURINARY: Denies any blood in urine. SKIN: Denies pruitis. Denies rash. PHYSICAL EXAM: VITAL SIGNS: Reviewed. GENERAL: Well-developed in no acute distress. HEENT: Head is normocephalic. Pupils are equal, round. Sclerae anicteric. Mucous membranes of the mouth are moist. Neck supple. No JVD or thyromegaly LUNGS: Respirations even and unlabored. Lungs essentially clear to auscultation bilaterally. HEART: Regular rate and rhythm. S1 and S2 heard. ABDOMEN: Soft. Nondistended. Nontender. EXTREMITIES: Normal range of motion. No clubbing or cyanosis. Peripheral pulses intact. No lower extremity edema NEUROLOGIC: Awake and alert. Oriented x 3. ASSESSMENT: Chest pain, troponins negative 3, Hypertension on arrival, improved Former nicotine dependence Chronic back pain with previous laminectomy Daily marijuana use PLAN: An acute coronary event has been ruled out Obtain 2-D echo to assess cardiac structure and function Continue to monitor blood pressure Patient undergo Lexiscan stress test today Further recommendations pending patient course Nurse practitioner note has been reviewed by physician. Signing provider agrees with the documented findings, assessment, and plan of care. Past Medical History Past Medical History: Musculoskeletal Disorder Additional Past Medical History / Comment(s): "Heart rate fluctuates," wearing holter monitor. "Venuous" veins, legs itch and swell up, wears support hose. Chronic neck, upper back pain; some lower back pain. NT BLE. History of Any Multi-Drug Resistant Organisms: None Reported Past Surgical History: Back Surgery, Section, Orthopedic Surgery Additional Past Surgical History / Comment(s): Left shoulder surgery with pin and plate in shoulder. Pain procedure Past Anesthesia/Blood Transfusion Reactions: No Reported Reaction Additional Past Anesthesia/Blood Transfusion Reaction / Comment(s): Adopted family hx unknown. Past Psychological History: No Psychological Hx Reported Smoking Status: Former smoker Past Alcohol Use History: Occasional Additional Past Alcohol Use History / Comment(s): Quit smoking 10/2020, smoked for 20+ yrs, 1/2 ppd. Past Drug Use History: Unable to Obtain Additional Drug Use History / Comment(s): Marajuana use ocassionally for pain - told by cardiac Dr to stop. Aware no use 24 hrs prior to procedure. - Past Family History Mother History Unknown: Yes Family Medical History: Unable to Obtain Father History Unknown: Yes Family Medical History: Unable to Obtain Additional Family Medical History / Comment(s): Patient adopted, family hx unknown. Medications and Allergies Home Medications Medication Instructions Recorded Confirmed Type Vitamin C/Biotin [Hair, Skin and 1 tab PO DAILY 03/15/21 05/30/21 History Nails Chew] traMADol HCL 50 mg PO Q8H PRN 03/15/21 05/30/21 History Ascorbic Acid [Vitamin C] 500 mg PO DAILY 05/30/21 05/30/21 History Cyanocobalamin (Vitamin B-12) 1,000 mcg PO DAILY 05/30/21 05/30/21 History [Vitamin B-12] Multivitamins, Thera [Multivitamin 1 tab PO DAILY 05/30/21 05/30/21 History (formulary)] Allergies Allergy/AdvReac Type Severity Reaction Status Date / Time No Known Allergies Allergy Verified 05/30/21 15:38 Physical Exam Vitals: Vital Signs Temp Pulse Pulse Resp BP BP Pulse Ox 05/31/21 07:00 98 F 59 L 18 146/88 97 05/31/21 02:30 80 18 05/31/21 01:19 98.2 F 89 18 153/91 96 05/30/21 21:11 98.1 F 80 18 138/88 98 05/30/21 20:24 98.4 F 83 24 139/94 97 05/30/21 19:04 98.4 F 62 18 162/95 97 05/30/21 14:53 64 18 148/91 96 05/30/21 13:24 98.1 F 70 18 217/95 95 Intake and Output 05/30/21 05/31/21 05/31/21 22:59 06:59 14:59 Other: Voiding Method Toilet # Voids 1 1 Weight 59.874 kg Results 05/31/21 05:30 05/31/21 05:30 Cardiac Enzymes 05/30/21 05/30/21 05/30/21 Range/Units 14:03 14:03 18:56 AST 26 (14-36) U/L Troponin I <0.012 <0.012 (0.000-0.034) ng/mL 05/30/21 Range/Units 21:58 AST (14-36) U/L Troponin I <0.012 (0.000-0.034) ng/mL Coagulation 05/30/21 Range/Units 14:03 PT 10.5 (9.0-12.0) sec APTT 26.0 (22.0-30.0) sec CBC 05/30/21 Range/Units 14:03 WBC 8.4 (3.8-10.6) k/uL RBC 5.53 H (3.80-5.40) m/uL Hgb 17.2 H (11.4-16.0) gm/dL Hct 51.1 H (34.0-46.0) % Plt Count 300 (150-450) k/uL Comprehensive Metabolic Panel 05/30/21 Range/Units 14:03 Sodium 140 (137-145) mmol/L Potassium 3.9 (3.5-5.1) mmol/L Chloride 104 (98-107) mmol/L Carbon Dioxide 25 (22-30) mmol/L BUN 11 (7-17) mg/dL Creatinine 0.63 (0.52-1.04) mg/dL Glucose 127 H (74-99) mg/dL Calcium 9.7 (8.4-10.2) mg/dL AST 26 (14-36) U/L ALT 20 (4-34) U/L Alkaline Phosphatase 155 H (38-126) U/L Total Protein 8.5 H (6.3-8.2) g/dL Albumin 4.7 (3.5-5.0) g/dL Current Medications Generic Name Dose Route Start Last Admin Trade Name Freq PRN Reason Stop Dose Admin Acetaminophen 650 mg 05/30/21 17:50 Acetaminophen Tab 325 Mg Tab PO Q6HR PRN Mild Pain or Fever > 100.5 Ascorbic Acid 500 mg 05/31/21 09:00 05/31/21 08:17 Ascorbic Acid 500 Mg Tab PO 500 mg DAILY DEBBIE Administration Cyanocobalamin 1,000 mcg 05/31/21 09:00 05/31/21 08:17 Cyanocobalamin 500 Mcg Tab PO 1,000 mcg DAILY DEBBIE Administration Enoxaparin Sodium 40 mg 05/30/21 19:15 05/31/21 08:17 Enoxaparin 40 Mg/0.4 Ml Syringe SQ 40 mg DAILY DEBBIE Administration Hydromorphone HCl 0.5 mg 05/30/21 17:50 05/31/21 08:37 Hydromorphone 0.5 Mg/0.5 Ml Syringe IVP 0.5 mg Q3HR PRN Administration Moderate Pain Hydromorphone HCl 1 mg 05/30/21 17:50 04/06/22 20:21 Hydromorphone 1 Mg/Ml 1 Ml Syringe IVP 1 mg Q3HR PRN Administration Severe Pain Sodium Chloride 1,000 mls @ 75 mls/hr 05/30/21 18:00 05/31/21 08:18 Saline 0.9% IV 75 mls/hr .[id number] DEBBIE Administration Multivitamins 1 each 05/31/21 09:00 05/31/21 08:17 Multivitamins, Thera 1 Each Tab PO 1 each DAILY DEBBIE Administration Naloxone HCl 0.2 mg 05/30/21 17:50 Naloxone 0.4 Mg/Ml 1 Ml Vial IV Q2M PRN Opioid Reversal Ondansetron HCl 4 mg 05/30/21 17:50 05/30/21 18:17 Ondansetron 4 Mg/2 Ml Vial IVP 4 mg Q8HR PRN Administration Nausea And Vomiting Pantoprazole Sodium 40 mg 05/30/21 18:00 05/31/21 08:17 Pantoprazole 40 Mg/10 Ml Vial IV 40 mg DAILY DEBBIE Administration Tramadol HCl 50 mg 05/30/21 19:03 Tramadol 50 Mg Tab PO Q8H PRN Pain Intake and Output 05/30/21 05/31/21 05/31/21 22:59 06:59 14:59 Other: Voiding Method Toilet # Voids 1 1 Weight 59.874 kg 05/30/21 14:03 05/30/21 14:03
[2021-05-31] MEDS ORDERED: ONDANSETRON 4 MG/2 ML VIAL ONE (11:30)
[2021-05-31] MEDS ORDERED: AMINOPHYLLINE 500 MG/20 ML VIAL IV ONE (11:35)
--- NOTE | 2021-05-31 12:41 | NM ---
EXAMINATION TYPE: NM stress lexiscan cardiolite DATE OF EXAM: 05/31/2021 COMPARISON: NONE HISTORY: Chest pain TECHNIQUE: After the intravenous administration of 10.2 mCi Tc 99m Sestamibi - Cardiolite resting SP ECT images acquired 45 minutes post injection. The patient received 0.4mg Lexiscan, 24.6 mCi Tc 99m Sestamibi - Stress images obtained [address] injection FINDINGS: Review of stress and rest SPECT images demonstrates no distinct perfusion abnormality. Gated analysi s shows normal wall motion with an estimated left ventricular ejection fraction of 72 %. IMPRESSION: No scintigraphic evidence for reversible ischemia.
--- NOTE | 2021-05-31 13:41 | ECHOF ---
Referral Reason:LV function, chest pain MEASUREMENTS -------- HEIGHT: 160.0 cm WEIGHT: 59.9 kg BP: 146/88 IVSd: 1.4 cm (0.6 - 1.1) LVIDd: 2.7 cm (3.9 - 5.3) LVPWd: 1.6 cm (0.6 - 1.1) IVSs: 1.6 cm LVIDs: 1.8 cm LVPWs: 2.0 cm LAESV Index (A-L): 22.56 ml/m Ao Diam: 3.2 cm (2.0 - 3.7) AV Cusp: 2.0 cm (1.5 - 2.6) LA Diam: 2.2 cm (2.7 - 3.8) MV E Maximiliano: 0.87 m/s MV DecT: 228 ms MV A Maximiliano: 0.87 m/s MV E/A Ratio: 1.00 RAP: 5.00 mmHg RVSP: 21.47 mmHg FINDINGS -------- Sinus rhythm. This was a technically adequate study. The left ventricular size is normal. There is moderate concentric left ventricular hypertrophy. O verall left ventricular systolic function is normal with, an EF between 55 - 60 %. The right ventricle is normal in size. Normal LA size by volume 22+/-6 ml/m2. The right atrial size is normal. The atrial septal defect shunts from left to right. The aortic valve is trileaflet, and appears structurally normal. No aortic stenosis or regurgitation. The mitral valve is normal. There is trace mitral regurgitation. The tricuspid valve appears structurally normal. Mild tricuspid regurgitation present. Right vent ricular systolic pressure is normal at < 35 mmHg. The right ventricular systolic pressure, as measu red by Doppler, is 21.47mmHg. There is no pulmonic regurgitation present. The aortic root size is normal. IVC Not well visulized. There is no pericardial effusion. CONCLUSIONS -------- 1. There is moderate concentric left ventricular hypertrophy. 2. Overall left ventricular systolic function is normal with, an EF between 55 - 60 %. 3. Normal LA size by volume 22+/-6 ml/m2. 4. The aortic valve is trileaflet, and appears structurally normal. No aortic stenosis or regurgitati on. 5. There is trace mitral regurgitation. 6. Mild tricuspid regurgitation present. REFERRAL SPECIALIST: Delmy Awad RDCS
--- NOTE | 2021-05-31 15:34 | EST ---
EXERCISE STRESS AGE: 70 SEX: F HT: 5'2" WT: 131 lbs. PROTOCOL: Lexiscan STAGE: NA DURATION OF EXERCISE: NA HEART RATE REST: 55 BLOOD PRESSURE REST: 184/92 MAXIMUM HEART RATE ACHIEVED: 132 MAXIMUM BLOOD PRESSURE: 184/92 85% MPHR: 129 100% MPHR: 152 METS: NA INDICATIONS: Chest pain CLINICAL INFORMATION: Baseline rhythm is sinus mechanism, rate of 55, normal axis and intervals. No acute ST- segment changes. Baseline blood pressure 184/92 mmHg. Patient received injection of Lexiscan. Electrocardiographic monitoring revealed no evidence of diagnostic ischemic ST deviation. Cardiolite was injected per protocol. CONCLUSION: 1. Nondiagnostic electrocardiograph stress testing with occasional PVCs. 2. Nuclear images will be reported separately. MMODL / IJN: [id number] /
[2021-06-01] MEDS: HYDROmorphone 1 MG/ML 1 ML SYRINGE IVP PRN (00:04)
[2021-06-01] MEDS: HYDROmorphone 0.5 MG/0.5 ML SYRINGE IVP PRN ×2 (04:58→08:25)
[2021-06-01] MEDS: ONDANSETRON 4 MG/2 ML VIAL IVP PRN (05:02)
[2021-06-01] MEDS ORDERED: PANTOPRAZOLE 40 MG TABLET PO SCH (07:30)
[2021-06-01 07:38] VITALS: RESP 18
[2021-06-01] MEDS: ENOXAPARIN 40 MG/0.4 ML SYRINGE SQ SCH (08:24)
[2021-06-01] MEDS: ASCORBIC ACID 500 MG TAB PO SCH (08:24)
[2021-06-01] MEDS: CYANOCOBALAMIN 500 MCG TAB PO SCH (08:25)
[2021-06-01] MEDS: MULTIVITAMINS, THERA 1 EACH TAB PO SCH (08:25)
--- NOTE | 2021-06-01 09:07 | US ---
EXAMINATION TYPE: US abdomen complete DATE OF EXAM: 06/01/2021 COMPARISON: 03/19/2018 CLINICAL HISTORY: epigastric and left upper quadrant pain. Chest/ LUQ pain EXAM MEASUREMENTS: Liver Length: 14.7 cm Gallbladder Wall: 0.2 cm CBD: 0.5 cm Spleen: 8.8 cm Right Kidney: 9.8 x 4.2 x 4.0 cm Left Kidney: 9.9 x 5.4 x 4.8 cm Pt very gassy limiting views Pancreas: Obscured by bowel gas Liver: Visualized portions appeared wnl Gallbladder: wnl Evidence for sonographic Valentine's sign: No CBD: wnl Spleen: wnl Right Kidney: wnl Left Kidney: wnl Upper IVC: wnl Abd Aorta: Proximal portion obscured by overlying bowel gas/ mid and distal portions wnl IMPRESSION: 1. No acute process.
--- NOTE | 2021-06-01 09:43 | P.HPIM ---
History of Present Illness H&P Date: 05/30/21 Xin Lilly, is a 70 year-old female, who presented to [facility] emergency room with a chief complaint of chest pain. She was evaluated in emergency room vital examination on presentation revealed a temperature of 98.1 pulse 70 respiration 18 and blood pressure 217/95 pulse ox 9 5% on room air Laboratory data revealed a white blood count of 8.4 hemoglobin 17.2 platelet count 300 d-dimer 0.64 sodium 140 potassium 3.9 chloride 104 CO2 25 BUN 11 creatinine 0.63 glucose was 127 troponin less than 0.012 lipase 94 Testing in the emergency room revealed chest x-ray done in the emergency room revealed no acute process, EKG done in the emergency room revealed sinus rhythm with marked sinus arrhythmia and incomplete right bundle branch block, patient underwent CT angiogram of the aorta that revealed no evidence of aortic aneurysm or dissection, incidental finding of air in the bladder. Patient was admitted to medical floor for further evaluation and treatment, cardiology consultation was requested Past medical history is significant for history of acute pancreatitis in 2019, history of nicotine dependence, known history of incomplete right bundle branch block since 2019 On review of systems Review of Systems Please refer to HPI otherwise unremarkable Past Medical History Past Medical History: Musculoskeletal Disorder Additional Past Medical History / Comment(s): "Heart rate fluctuates," wearing holter monitor. "Venuous" veins, legs itch and swell up, wears support hose. Chronic neck, upper back pain; some lower back pain. NT BLE. History of Any Multi-Drug Resistant Organisms: None Reported Past Surgical History: Back Surgery, Section, Orthopedic Surgery Additional Past Surgical History / Comment(s): Left shoulder surgery with pin and plate in shoulder. Pain procedure Past Anesthesia/Blood Transfusion Reactions: No Reported Reaction Additional Past Anesthesia/Blood Transfusion Reaction / Comment(s): Adopted family hx unknown. Past Psychological History: No Psychological Hx Reported Smoking Status: Former smoker Past Alcohol Use History: Occasional Past Drug Use History: Unable to Obtain - Past Family History Mother History Unknown: Yes Family Medical History: Unable to Obtain Father History Unknown: Yes Family Medical History: Unable to Obtain Additional Family Medical History / Comment(s): Patient adopted, family hx unknown. Medications and Allergies Home Medications Medication Instructions Recorded Confirmed Type Vitamin C/Biotin [Hair, Skin and 1 tab PO DAILY 03/15/21 05/30/21 History Nails Chew] traMADol HCL 50 mg PO Q8H PRN 03/15/21 05/30/21 History Ascorbic Acid [Vitamin C] 500 mg PO DAILY 05/30/21 05/30/21 History Cyanocobalamin (Vitamin B-12) 1,000 mcg PO DAILY 05/30/21 05/30/21 History [Vitamin B-12] Multivitamins, Thera [Multivitamin 1 tab PO DAILY 05/30/21 05/30/21 History (formulary)] Allergies Allergy/AdvReac Type Severity Reaction Status Date / Time No Known Allergies Allergy Verified 05/30/21 15:38 Physical Exam Vitals: Vital Signs Temp Pulse Resp BP Pulse Ox 05/30/21 19:04 98.4 F 62 18 162/95 97 05/30/21 14:53 64 18 148/91 96 05/30/21 13:24 98.1 F 70 18 217/95 95 Intake and Output 05/30/21 05/30/21 05/30/21 06:59 14:59 22:59 Other: Weight 59.874 kg Head normocephalic Neck supple Lungs clear to auscultation bilaterally no wheezing or crackles Heart regular rate and rhythm S1-S2, no rub or gallop Abdomen is soft nontender nondistended positive bowel sounds no hepatosplenomegaly Extremities no edema Neuro alert and orientated to 3 Results CBC & Chem 7: 05/31/21 05:30 05/31/21 05:30 Labs: Abnormal Lab Results - Last 24 Hours (Table) 05/30/21 05/30/21 05/30/21 Range/Units 14:03 14:03 14:03 RBC 5.53 H (3.80-5.40) m/uL Hgb 17.2 H (11.4-16.0) gm/dL Hct 51.1 H (34.0-46.0) % D-Dimer 0.64 H (<0.60) mg/L FEU Glucose 127 H (74-99) mg/dL Alkaline Phosphatase 155 H (38-126) U/L Total Protein 8.5 H (6.3-8.2) g/dL Assessment and Plan Assessment: 1. Chest pain. Cardiology services have been consulted. Troponins negative 3. 2. Ex-smoker. Patient reports she quit in October 2020 3. Chronic pain patient reports she follows with pain clinic in which she receives injections DVT prophylaxis Lovenox. GI prophylaxis Protonix Cardiology service is consulted Stress test ordered Ultrasound of abdomen ordered Time with Patient: Greater than 30
--- NOTE | 2021-06-01 09:45 | P.PN ---
Subjective Progress Note Date: 06/01/21 Xin Lilly, is a 70 year-old female, who presented to [facility] emergency room with a chief complaint of chest pain. She was evaluated in emergency room vital examination on presentation revealed a temperature of 98.1 pulse 70 respiration 18 and blood pressure 217/95 pulse ox 95% on room air Laboratory data revealed a white blood count of 8.4 hemoglobin 17.2 platelet count 300 d-dimer 0.64 sodium 140 potassium 3.9 chloride 104 CO2 25 BUN 11 creatinine 0.63 glucose was 127 troponin less than 0.012 lipase 94 Testing in the emergency room revealed chest x-ray done in the emergency room revealed no acute process, EKG done in the emergency room revealed sinus rhythm with marked sinus arrhythmia and incomplete right bundle branch block, patient underwent CT angiogram of the aorta that revealed no evidence of aortic aneurysm or dissection, incidental finding of air in the bladder. Patient was admitted to medical floor for further evaluation and treatment, cardiology consultation was requested Past medical history is significant for history of acute pancreatitis in 2019, history of nicotine dependence, known history of incomplete right bundle branch block since 2019 On 06/01/2021 patient alert and oriented 3. Stress test was negative. Patient reports she still having significant left chest pain. Ultrasound of abdomen negative. Repeat d-dimer negative. Amylase and lipase within normal limits. Lab work unremarkable. Patient having some wheezing on exam will order 2 view chest x-ray. Temperature 98.2, heart rate 87, respiratory rate 18, blood pressure 1 6693 patient satting 97% on room air Objective - Vital Signs Vital signs: Vital Signs Temp 98.2 F 06/01/21 07:00 Pulse 87 06/01/21 08:00 Resp 18 06/01/21 08:00 BP 166/93 06/01/21 07:00 Pulse Ox 97 06/01/21 07:00 Intake & Output 05/31/21 06/01/21 06/01/21 18:59 06:59 18:59 Intake Total 1020 Balance 1020 Weight 59.87 kg Intake: Intake, IV Titration 600 Amount Sodium Chloride 0.9% 1, 600 000 ml @ 75 mls/hr IV . [id number] Rx#:[id number] Oral 420 Other: Voiding Method Toilet Toilet # Voids 2 - Exam Head normocephalic Neck supple Lungs clear to auscultation bilaterally no wheezing or crackles Heart regular rate and rhythm S1-S2, no rub or gallop Abdomen is soft nontender nondistended positive bowel sounds no hepatosplenomegaly Extremities no edema Neuro alert and orientated to 3 - Labs CBC & Chem 7: 05/31/21 05:30 05/31/21 05:30 Assessment and Plan Assessment: 1. Chest pain. Cardiology services have been consulted. Troponins negative 3. 2. Ex-smoker. Patient reports she quit in October 2020 3. Chronic pain patient reports she follows with pain clinic in which she receives injections DVT prophylaxis Lovenox. GI prophylaxis Protonix Cardiology service is consulted Stress test negative Ultrasound of abdomen negative Lipase within normal 2 view chest x-ray ordered
--- NOTE | 2021-06-01 10:26 | XR ---
EXAMINATION TYPE: XR chest 2V DATE OF EXAM: 06/01/2021 COMPARISON: 05/30/2021 TECHNIQUE: PA and lateral views submitted. HISTORY: Wheezing FINDINGS: The lungs are clear and there is no pneumothorax, pleural effusion, or focal pneumonia. Heart size normal. No pleural effusion or interstitial edema. Biapical pleural thickening. Atherosclerotic briggs e aorta. Coarsened interstitium. Hyperinflation suggests COPD. Postsurgical change left shoulder. IMPRESSION: 1. No acute process. Coarsened interstitium can be associated with bronchitis or interstitial pneumon itis correlate clinically.
[2021-06-01] MEDS: SODIUM CHLORIDE 0.9% 1,000 ML IV SCH (12:44)
[2021-06-01] MEDS ORDERED: amLODIPine 5 MG TAB PO SCH (14:30)
--- NOTE | 2021-06-01 14:49 | P.DS ---
Providers Date of admission: 05/30/21 17:50 Expected date of discharge: 06/01/21 Attending physician: Abran Collins Primary care physician: Gabriela Avendano [facility] Course: Diagnosis on discharge: 1. Chest pain. Cardiology services have been consulted. Troponins negative 3. 2. Ex-smoker. Patient reports she quit in October 2020 3. Chronic pain patient reports she follows with pain clinic in which she receives injections 4. Hypertention, patient started on Amlodipine 5 mg po daily during this hospitalization. 5. GERD, started on Protonix during this admission. Hospital course: Xin Lilly, is a 70 year-old female, who presented to [facility] emergency room with a chief complaint of chest pain. She was evaluated in emergency room vital examination on presentation revealed a temperature of 98.1 pulse 70 respiration 18 and blood pressure 217/95 pulse ox 95% on room air Laboratory data revealed a white blood count of 8.4 hemoglobin 17.2 platelet count 300 d-dimer 0.64 sodium 140 potassium 3.9 chloride 104 CO2 25 BUN 11 creatinine 0.63 glucose was 127 troponin less than 0.012 lipase 94 Testing in the emergency room revealed chest x-ray done in the emergency room revealed no acute process, EKG done in the emergency room revealed sinus rhythm with marked sinus arrhythmia and incomplete right bundle branch block, patient underwent CT angiogram of the aorta that revealed no evidence of aortic aneurysm or dissection, incidental finding of air in the bladder. Patient was admitted to medical floor for further evaluation and treatment, cardiology consultation was requested Past medical history is significant for history of acute pancreatitis in 2019, history of nicotine dependence, known history of incomplete right bundle branch block since 2019 On 06/01/2021 patient alert and oriented 3. Stress test was negative. Patient reports she still having significant left chest pain. Ultrasound of abdomen negative. Repeat d-dimer negative. Amylase and lipase within normal limits. Lab work unremarkable. Patient having some wheezing on exam will order 2 view chest x-ray. Temperature 98.2, heart rate 87, respiratory rate 18, blood pressure 1 6693 patient satting 97% on room air Patient continued to have left sided chest pain and upper abdominal pain, no positive findings on any tests, case was discussed with Dr Barth and patient was cleared for discharge from cardiology [facility]. I examined patient personally, no significant findings on exam, no skin rash to suggest Zoster eruption. patient will need further testing as outpatient to assess cause of her pain. Patient will need a colonoscopy and possibly an MRI and a bone scan as outpatient. She will follow up with her primary care physician Dr Avendano for futher outpatient testing. Patient Condition at Discharge: Stable Plan - Discharge Summary Discharge Rx Participant: No New Discharge Prescriptions: New Pantoprazole [Protonix] 40 mg PO AC-BRKFST tab Acetaminophen Tab [Tylenol] 650 mg PO Q6HR PRN tab PRN Reason: Mild Pain Or Fever > 100.5 amLODIPine [Norvasc] 5 mg PO DAILY 30 Days #30 tab Continue Vitamin C/Biotin [Hair, Skin and Nails Chew] 1 tab PO DAILY traMADol HCL 50 mg PO Q8H PRN PRN Reason: Pain Multivitamins, Thera [Multivitamin (formulary)] 1 tab PO DAILY Ascorbic Acid [Vitamin C] 500 mg PO DAILY Cyanocobalamin (Vitamin B-12) [Vitamin B-12] 1,000 mcg PO DAILY Discharge Medication List Vitamin C/Biotin [Hair, Skin and Nails Chew] 1 tab PO DAILY 03/15/21 [History] traMADol HCL 50 mg PO Q8H PRN 03/15/21 [History] Ascorbic Acid [Vitamin C] 500 mg PO DAILY 05/30/21 [History] Cyanocobalamin (Vitamin B-12) [Vitamin B-12] 1,000 mcg PO DAILY 05/30/21 [History] Multivitamins, Thera [Multivitamin (formulary)] 1 tab PO DAILY 05/30/21 [History] Acetaminophen Tab [Tylenol] 650 mg PO Q6HR PRN tab 06/01/21 [Rx] Pantoprazole [Protonix] 40 mg PO AC-BRKFST tab 06/01/21 [Rx] amLODIPine [Norvasc] 5 mg PO DAILY 30 Days #30 tab 06/01/21 [Rx] Follow up Appointment(s)/Referral(s): Gabriela Avendano MD [Primary Care Provider] - 1-2 days Patient Instructions/Handouts: Chest Pain (DC)
[2021-06-01 14:54] VITALS: BP 139/88; PULSE 77; TEMP 98.1
== END 2021-06-01 15:23 | disposition home or self-care (01) ==
LOC: EC 12:46 → 6NMEDSUR 17:50
PROVIDERS: ADMIT Internal Medicine; ATTEND Internal Medicine
DX: R07.89 Other chest pain (principal); R10.10 Upper abdominal pain, unspecified; R11.2 Nausea with vomiting, unspecified; R06.2 Wheezing; G89.29 Other chronic pain; M54.50 Low back pain, unspecified; M54.6 Pain in thoracic spine; M54.2 Cervicalgia; I10 Essential (primary) hypertension; K21.9 Gastro-esophageal reflux disease without esophagitis; I07.1 Rheumatic tricuspid insufficiency; I45.10 Unspecified right bundle-branch block; Z87.891 Personal history of nicotine dependence; Z87.19 Personal history of other diseases of the digestive system
CPT/HCPCS: 96376 ×3; 96361 ×2; 96372 ×3; 96374; 96375; 99285; 36415; 93005; 93017; 93306; 85379 ×2; 83880; 80053 ×2; 82150; 83690 ×2; 83735; 84484; 85025 ×2; 85610; 85730; 71045; 71046; 76700; 71275; 74174; 78452; G0378 ×3; A9500; J2405 ×3; J0280; J1650 ×3; J1170 ×4; J2785; C9113 ×2; Q9967

== ENCOUNTER → 2021-07-26 | Outpatient (CLI) | payer MEDICARE ==
--- NOTE | 2021-07-27 05:29 | MR ---
EXAMINATION TYPE: MR abdomen wo/w con DATE OF EXAM: 07/26/2021 COMPARISON: CT scan 05/30/2021 HISTORY: Adrenal mass, abnormal ultrasound CONTRAST: Standard multiplanar, multisequence MRI departmental protocol images were obtained without contrast a nd with 6 mL intravenous Gadavist gadolinium contrast. Liver shows no focal defect. There is no evidence of pleural effusion. Heart size is normal. No peric ardial effusion seen. Spleen is intact. There is no evidence of pancreatic mass. There is mild ectasi a of the distal pancreatic duct. Pancreatic duct measures 5 mm gallbladder appears normal. The bile d ucts are not dilated. Kidneys have normal size and contour. There is normal enhancement of the kidneys. No hydronephrosis. There is a 2.7 cm rounded right adrenal mass. Mass shows decreased signal on the out of phase images to suggest significant amount of fat. The size is not changed compared to CT scan. Mass appears the s rajesh as lumbar spine CT scan of 12/22/2020. There is weak enhancement of the mass with the contrast. There is no retroperitoneal adenopathy. No ascites. No evidence of a bowel obstruction. IMPRESSION: There is right adrenal mass with signal characteristics of myelolipoma and not changed in size compar ed to 05/30/2021 and 12/22/2020.
== END | disposition home or self-care (01) ==
LOC: RADMRIMAIN 08:21
PROVIDERS: ATTEND Family Medicine
DX: E27.9 Disorder of adrenal gland, unspecified (principal); D17.79 Benign lipomatous neoplasm of other sites
CPT/HCPCS: 74183; A9585

== ENCOUNTER → 2021-10-10 | Outpatient (CLI) | payer MEDICARE ==
[2021-10-10 15:23] LABS: African American GFR (CKD) 87.2 (60.0-200.0); Albumin 4.7 g/dL (3.8-4.9); Albumin/Globulin Ratio 1.47 (1.60-3.17); BUN/Creat Ratio 13.5 Ratio (12.00-20.00); Blood Urea Nitrogen 10.8 mg/dL (9.0-27.0); Calcium 9.8 mg/dL (8.7-10.3); Globulin 3.2 g/dL (1.6-3.3); Non-African American GFR(CKD) 75.2 (60.0-200.0); Potassium 4.3 mmol/L (3.5-5.5); Total Bilirubin 0.4 mg/dL (0.30-1.20); Total Protein 7.9 g/dL (6.2-8.2)
== END | disposition home or self-care (01) ==
LOC: LABWHC1 10:07
PROVIDERS: ATTEND Internal Medicine Endocrinology, Diabetes & Metabolism
DX: D35.00 Benign neoplasm of unspecified adrenal gland (principal)
CPT/HCPCS: 36415; 80053; 82024; 82088; 82533; 83835; 84244